=== PATIENT | female | born 1950 | race Caucasian/White ===

== ENCOUNTER → 2016-08-14 | Outpatient (CLI) | payer MEDICARE ==
--- NOTE | 2016-08-15 09:17 | MM ---
Reason for exam: screening (asymptomatic). Last mammogram was performed 1 year ago. History: Patient is postmenopausal. Benign left mammotome panel of the left breast, July 12, 2013. Benign left mammotome panel of the left breast, April 13, 2007. Excisional biopsy of the left breast, April 06, 2001. Taking estrogen for 25 years 9 months beginning at age 35. Physical Findings: A clinical breast exam by your physician is recommended on an annual basis and results should be correlated with mammographic findings. MG 3D Screening Mammo W/Cad Bilateral CC and MLO view(s) were taken. Prior study comparison: July 31, 2015, bilateral MG screening mammo w CAD. July 13, 2014, bilateral MG screening mammo w CAD. January 10, 2014, left breast MG diagnostic mammo LT w CAD. There are scattered fibroglandular densities. Finding: There are typically benign vascular, dystrophic, round, linear diffuse/scattered calcifications in both breasts. Previous mammotome biopsy in the left breast x 2. There is a chronic nodularity bilaterally anteriorly. There is no discrete abnormality. ASSESSMENT: Benign, BI-RAD 2 RECOMMENDATION: Routine screening mammogram of both breasts in 1 year.
== END | disposition home or self-care (01) ==
LOC: RADMAMWWP 11:11
PROVIDERS: ATTEND Family Medicine
DX: Z12.31 Encounter for screening mammogram for malignant neoplasm of breast (principal)
CPT/HCPCS: 77063; G0202

== ENCOUNTER → 2016-08-28 | Outpatient (CLI) | payer MEDICARE ==
--- NOTE | 2016-08-28 11:13 | XR ---
EXAMINATION TYPE: XR chest 2V DATE OF EXAM: 08/28/2016 10:40 AM COMPARISON: 02/14/2012 TECHNIQUE: PA and lateral views submitted. HISTORY: Cough FINDINGS: The lungs are clear and there is no pneumothorax, pleural effusion, or focal pneumonia. Postsurgica l change left shoulder. Elevated right hemidiaphragm. Mild hypertrophic change of the spine. IMPRESSION: 1. No acute process.
--- NOTE | 2016-08-28 11:14 | XR ---
EXAMINATION TYPE: XR sinus DATE OF EXAM: 08/28/2016 11:03 AM COMPARISON: NONE HISTORY: Sinus infection TECHNIQUE: 4 views submitted FINDINGS: There is moderate mucosal thickening involving both maxillary sinuses. Osseous structures i ntact. No air-fluid levels. IMPRESSION: 1. Findings suggestive of moderate maxillary chronic sinusitis.
== END | disposition home or self-care (01) ==
LOC: RADXRMAIN 10:24
PROVIDERS: ATTEND Family Medicine
DX: J20.9 Acute bronchitis, unspecified (principal); J01.90 Acute sinusitis, unspecified
CPT/HCPCS: 70220; 71020

== ENCOUNTER → 2017-04-23 | Outpatient (CLI) | payer MEDICARE ==
[2017-04-23 07:25] LABS: Blood Urea Nitrogen 22 mg/dL (7-17); Non-African American GFR(MDRD) >60 (>60 ml/min/1.73 sqM)
--- NOTE | 2017-04-23 08:13 | CT ---
EXAMINATION TYPE: CT chest w con DATE OF EXAM: 04/23/2017 COMPARISON: NONE HISTORY: Pulmonary nodule and left side chest pain x4-5 weeks. No prior. 100ml of [id number]. Scanned by LS and CS. CT DLP: 630.7 mGycm Automated exposure control for dose reduction was used. CONTRAST: CT scan of the chest is performed with IV Contrast, patient injected with 100ml mL of Omnipaque 300. FINDINGS: LUNGS: There is no concerning parenchymal mass or nodule identified. Parenchymal scarring or atelecta sis is identified within the region of the right middle lobe, right lower lobe and left lower lobe. S mall area of focal pleural thickening with internal calcifications right lower lobe. Chronic elevatio n right hemidiaphragm. There is no pleural effusion or pneumothorax seen. The tracheobronchial tree is patent. MEDIASTINUM: There are no greater than 1 cm hilar or mediastinal lymph nodes. No pericardial effusi on is seen. Thoracic aorta is of normal caliber. The heart is not enlarged. UPPER ABDOMEN: Hepatic steatosis. Cholecystectomy clips. OTHER: No additional significant abnormalit y is seen. IMPRESSION: 1. No concerning of pulmonary nodule or mass. Scattered areas of parenchymal scarring and/or atelect asis.
== END | disposition home or self-care (01) ==
LOC: RADCTMAIN 06:45
PROVIDERS: ATTEND Family Medicine
DX: R91.1 Solitary pulmonary nodule (principal)
CPT/HCPCS: 82565; 84520; 71260; 36415; Q9967

== ENCOUNTER → 2017-09-17 | Outpatient (CLI) | payer MEDICARE ==
--- NOTE | 2017-09-19 10:25 | MM ---
Reason for exam: screening (asymptomatic). Last mammogram was performed 1 year and 1 month ago. History: Patient is postmenopausal. Benign left mammotome panel of the left breast, July 12, 2013. Benign left mammotome panel of the left breast, April 13, 2007. Excisional biopsy of the left breast, April 06, 2001. Taking estrogen for 25 years 9 months beginning at age 35. Physical Findings: A clinical breast exam by your physician is recommended on an annual basis and results should be correlated with mammographic findings. MG 3D Screening Mammo W/Cad Bilateral CC and MLO view(s) were taken. Prior study comparison: August 14, 2016, bilateral MG 3d screening mammo w/cad. July 31, 2015, bilateral MG screening mammo w CAD. There are scattered fibroglandular densities. There is a stable 3mm upper outer quadrant anterior depth right breast mass with calcifications back to 2013. Benign calcifications bilaterally. No suspicious abnormality. ASSESSMENT: Benign, BI-RAD 2 RECOMMENDATION: Routine screening mammogram of both breasts in 1 year.
== END | disposition home or self-care (01) ==
LOC: RADMAMWWP 15:00
PROVIDERS: ATTEND Family Medicine
DX: Z12.31 Encounter for screening mammogram for malignant neoplasm of breast (principal)
CPT/HCPCS: 77063; 77067

== ENCOUNTER → 2018-01-13 | Outpatient (CLI) | payer MEDICARE | END | disposition home or self-care (01) | LOC: RADMRIMAIN 11:27 | PROVIDERS: ATTEND Anesthesiology Pain Medicine | DX: Z53.9 Procedure and treatment not carried out, unspecified reason (principal) ==

== ENCOUNTER → 2018-01-31 | Outpatient (CLI) | payer MEDICARE | END | disposition home or self-care (01) | LOC: RADMRIMAIN 12:21 | PROVIDERS: ATTEND Family Medicine | DX: E11.9 Type 2 diabetes mellitus without complications (principal) | CPT/HCPCS: 82565 ==

== ENCOUNTER 2018-05-16 15:42 | Inpatient (IN) | payer MEDICARE ==
[2018-05-16] MEDS ORDERED: SODIUM CHLORIDE 0.9% 1,000 ML IV STA (15:52)
--- NOTE | 2018-05-16 15:57 | ED ---
General Adult HPI - General Chief complaint: Syncope Stated complaint: Syncope Time Seen by Provider: 05/16/18 15:42 Source: patient, EMS, RN notes reviewed Mode of arrival: EMS Limitations: no limitations - History of Present Illness Initial comments: This is a 68-year-old female who presents emergency department after a near syncopal episode. Patient states over the last few days she hasn't been eating or drinking because she just hasn't been hungry. Patient states she's also had multiple falls over that period of time. Patient states 2 days ago she hit her head and hurt her neck but she didn't get evaluated that time. Patient also states she bruised her right knee couple days ago but it has full range of motion in has no problem holding up her weight. Patient states today she was getting up off the toilet when she got lightheaded and fell forward and fell down. Patient denies hitting her head or neck today. Patient denies hurting any part of her body on the fall. Patient states she was extremely lightheaded anytime he try to sit her back up to her called EMS. Patient denies any chest pain palpitations difficulty breathing shortness of breath per patient denies any abdominal pain patient denies nausea vomiting diarrhea. Patient states she continues to take her blood pressure medications even though she's been lightheaded and falling recently. Patient states she is not immobile pressure cuff at home she does not take her blood pressure at home. - Related Data Home Medications Medication Instructions Recorded Confirmed Aspirin EC [Ecotrin Low Dose] 81 mg PO DAILY 05/16/18 05/16/18 Estrogens, Conjugated [Premarin] 1.25 mg PO HS 05/16/18 05/16/18 Gabapentin [Neurontin] 300 mg PO HS 05/16/18 05/16/18 Glucosamine/Chondr Arrieta A Sod [Osteo 2 tab PO HS 05/16/18 05/16/18 Bi-Flex Caplet] Ibuprofen [Motrin] 800 mg PO BID 05/16/18 05/16/18 Levothyroxine Sodium [Synthroid] 200 mcg PO DAILY 05/16/18 05/16/18 Loratadine [Claritin] 10 mg PO DAILY 05/16/18 05/16/18 Montelukast [Singulair] 10 mg PO DAILY 05/16/18 05/16/18 Omeprazole 40 mg PO BID 05/16/18 05/16/18 Sucralfate [Carafate] 1 gm PO AC-TID 05/16/18 05/16/18 Sulfamethox-Tmp 800-160Mg [Bactrim 1 tab PO BID 05/16/18 05/16/18 DS 800-160 mg] Valsartan/Hydrochlorothiazide 1 tab PO DAILY 05/16/18 05/16/18 [Valsartan-Hctz 320-25 mg Tab] oxyCODONE HCL [OxyCONTIN] 30 mg PO Q12H 05/16/18 05/16/18 oxyCODONE-APAP 10-325MG [Percocet 1 tab PO BID 05/16/18 05/16/18 10-325 mg] sitaGLIPtin [Januvia] 100 mg PO DAILY 05/16/18 05/16/18 Allergies Allergy/AdvReac Type Severity Reaction Status Date / Time Penicillins Allergy Rash/Hives Verified 05/16/18 16:42 Review of Systems ROS Statement: Those systems with pertinent positive or pertinent negative responses have been documented in the HPI. ROS Other: All systems not noted in ROS Statement are negative. Past Medical History Past Medical History: Hypertension, Thyroid Disorder History of Any Multi-Drug Resistant Organisms: None Reported Past Surgical History: Back Surgery, Section, Cholecystectomy, Hysterectomy Additional Past Surgical History / Comment(s): right elbow, right ankle, right rotator cuff, Past Psychological History: No Psychological Hx Reported Smoking Status: Never smoker Past Alcohol Use History: None Reported Past Drug Use History: None Reported General Exam - General Exam Comments Initial Comments: GENERAL: Patient is well-developed and well-nourished. Patient is nontoxic and well- hydrated and is in mild distress. ENT: Neck is soft and supple. No significant lymphadenopathy is noted. Oropharynx is clear. Moist mucous membranes. Neck has full range of motion without eliciting any pain. EYES: The sclera were anicteric and conjunctiva were pink and moist. Extraocular movements were intact and pupils were equal round and reactive to light. Eyelids were unremarkable. PULMONARY: Unlabored respirations. Good breath sounds bilaterally. No audible rales rhonchi or wheezing was noted. CARDIOVASCULAR: There is a regular rate and rhythm without any murmurs gallops or rubs. ABDOMEN: Soft and nontender with normal bowel sounds. No palpable organomegaly was noted. There is no palpable pulsatile mass. SKIN: Skin is clear with no lesions or rashes and otherwise unremarkable. Patient has bilateral radial pulses but are faint. NEUROLOGIC: Patient is alert and oriented x3. Cranial nerves II through XII are grossly intact. Motor and sensory are also intact. Normal speech, volume and content. Symmetrical smile. MUSCULOSKELETAL: Normal extremities with adequate strength and full range of motion. LYMPHATICS: No significant lymphadenopathy is noted PSYCHIATRIC: Normal psychiatric evaluation. Limitations: no limitations Course Vital Signs 05/16/18 05/16/18 05/16/18 15:44 16:02 16:10 Temperature 97.4 F L Pulse Rate 69 67 66 Respiratory 18 20 20 Rate Blood Pressure 87/43 79/44 83/26 O2 Sat by Pulse 98 92 L Oximetry 05/16/18 05/16/18 16:12 16:35 Temperature Pulse Rate 68 63 Respiratory 18 18 Rate Blood Pressure 71/27 98/31 O2 Sat by Pulse 100 98 Oximetry Medical Decision Making - Medical Decision Making EKG shows sinus rhythm at 67 bpm ID interval is 234 QRS is 102 QT interval is 462 QTC is 480. Patient's EKG shows no ST segment elevation or depression or T wave abnormalities are noted. I spoke with Dr. Burnette she agreed to admit the patient admitted the patient I consult to nephrology repeat CBC. - Lab Data Result diagrams: 05/16/18 16:00 05/16/18 16:00 Lab Results 05/16/18 05/16/18 05/16/18 Range/Units 16:00 16:00 16:00 WBC 10.6 (3.8-10.6) k/uL RBC 3.80 (3.80-5.40) m/uL Hgb 10.4 L (11.4-16.0) gm/dL Hct 34.5 (34.0-46.0) % MCV 90.7 (80.0-100.0) fL MCH 27.5 (25.0-35.0) pg MCHC 30.3 L (31.0-37.0) g/dL RDW 15.0 (11.5-15.5) % Plt Count 285 (150-450) k/uL Neutrophils % 84 % Lymphocytes % 8 % Monocytes % 4 % Eosinophils % 1 % Basophils % 0 % Neutrophils # 9.0 H (1.3-7.7) k/uL Lymphocytes # 0.9 L (1.0-4.8) k/uL Monocytes # 0.4 (0-1.0) k/uL Eosinophils # 0.1 (0-0.7) k/uL Basophils # 0.0 (0-0.2) k/uL Hypochromasia Slight PT (9.0-12.0) sec INR (<1.2) APTT (22.0-30.0) sec Sodium 132 L (137-145) mmol/L Potassium 3.0 L (3.5-5.1) mmol/L Chloride 99 (98-107) mmol/L Carbon Dioxide 16 L (22-30) mmol/L Anion Gap 17 mmol/L BUN 84 H (7-17) mg/dL Creatinine 5.47 H (0.52-1.04) mg/dL Est GFR (CKD-EPI)AfAm 9 (>60 ml/min/1.73 sqM) Est GFR (CKD-EPI)NonAf 7 (>60 ml/min/1.73 sqM) Glucose 122 H (74-99) mg/dL Calcium 7.9 L (8.4-10.2) mg/dL Magnesium 3.1 H (1.6-2.3) mg/dL Total Bilirubin 0.2 (0.2-1.3) mg/dL AST 42 H (14-36) U/L ALT 27 (9-52) U/L Alkaline Phosphatase 121 (38-126) U/L Total Creatine Kinase 700 H (30-135) U/L CK-MB (CK-2) 12.3 H (0.0-2.4) ng/mL CK-MB (CK-2) Rel Index 1.8 Troponin I <0.012 (0.000-0.034) ng/mL Total Protein 6.1 L (6.3-8.2) g/dL Albumin 2.8 L (3.5-5.0) g/dL Urine Color Urine Appearance (Clear) Urine pH (5.0-8.0) Ur Specific [place] (1.001-1.035) Urine Protein (Negative) Urine Glucose (UA) (Negative) Urine Ketones (Negative) Urine Blood (Negative) Urine Nitrite (Negative) Urine Bilirubin (Negative) Urine Urobilinogen (<2.0) mg/dL Ur Leukocyte Esterase (Negative) Urine RBC (0-5) /hpf Urine WBC (0-5) /hpf Hyaline Casts (0-2) /lpf Urine Mucus (None) /hpf 05/16/18 05/16/18 Range/Units 16:00 16:08 WBC (3.8-10.6) k/uL RBC (3.80-5.40) m/uL Hgb (11.4-16.0) gm/dL Hct (34.0-46.0) % MCV (80.0-100.0) fL MCH (25.0-35.0) pg MCHC (31.0-37.0) g/dL RDW (11.5-15.5) % Plt Count (150-450) k/uL Neutrophils % % Lymphocytes % % Monocytes % % Eosinophils % % Basophils % % Neutrophils # (1.3-7.7) k/uL Lymphocytes # (1.0-4.8) k/uL Monocytes # (0-1.0) k/uL Eosinophils # (0-0.7) k/uL Basophils # (0-0.2) k/uL Hypochromasia PT 10.5 (9.0-12.0) sec INR 1.0 (<1.2) APTT 35.8 H (22.0-30.0) sec Sodium (137-145) mmol/L Potassium (3.5-5.1) mmol/L Chloride (98-107) mmol/L Carbon Dioxide (22-30) mmol/L Anion Gap mmol/L BUN (7-17) mg/dL Creatinine (0.52-1.04) mg/dL Est GFR (CKD-EPI)AfAm (>60 ml/min/1.73 sqM) Est GFR (CKD-EPI)NonAf (>60 ml/min/1.73 sqM) Glucose (74-99) mg/dL Calcium (8.4-10.2) mg/dL Magnesium (1.6-2.3) mg/dL Total Bilirubin (0.2-1.3) mg/dL AST (14-36) U/L ALT (9-52) U/L Alkaline Phosphatase (38-126) U/L Total Creatine Kinase (30-135) U/L CK-MB (CK-2) (0.0-2.4) ng/mL CK-MB (CK-2) Rel Index Troponin I (0.000-0.034) ng/mL Total Protein (6.3-8.2) g/dL Albumin (3.5-5.0) g/dL Urine Color Yellow Urine Appearance Clear (Clear) Urine pH 6.0 (5.0-8.0) Ur Specific [place] 1.014 (1.001-1.035) Urine Protein 1+ H (Negative) Urine Glucose (UA) Negative (Negative) Urine Ketones Negative (Negative) Urine Blood Negative (Negative) Urine Nitrite Negative (Negative) Urine Bilirubin Negative (Negative) Urine Urobilinogen <2.0 (<2.0) mg/dL Ur Leukocyte Esterase Negative (Negative) Urine RBC 1 (0-5) /hpf Urine WBC 2 (0-5) /hpf Hyaline Casts 8 H (0-2) /lpf Urine Mucus Rare H (None) /hpf Disposition Clinical Impression: Acute renal failure, Anemia, Hypokalemia Disposition: ADMITTED IP TO THIS HOSP Referrals: Kp Shaw DO [Primary Care Provider] - 1-2 days Time of Disposition: 17:36
[2018-05-16 16:12] LABS: Basophils % (A) 0 %; Eosinophils # (A) 0.1 k/uL (0-0.7); Eosinophils % (A) 1 %; HCT 34.5 % (34.0-46.0); HGB 10.4 gm/dL (11.4-16.0); Hypochromasia Slight; Lymphocytes # (A) 0.9 k/uL (1.0-4.8); Lymphocytes % (A) 8 %; MCH 27.5 pg (25.0-35.0); MCHC 30.3 g/dL (31.0-37.0); MCV 90.7 fL (80.0-100.0); Mean Platelet Volume 7.2; Monocytes # (A) 0.4 k/uL (0-1.0); Monocytes % (A) 4 %; Neutrophils % (A) 84 %; Platelet Count 285 k/uL (150-450); WBC 10.6 k/uL (3.8-10.6)
[2018-05-16 16:21] LABS: Albumin 2.8 g/dL (3.5-5.0); Calcium 7.9 mg/dL (8.4-10.2); Magnesium 3.1 mg/dL (1.6-2.3); Total Bilirubin 0.2 mg/dL (0.2-1.3); Total Protein 6.1 g/dL (6.3-8.2)
[2018-05-16 16:22] LABS: Creatine Kinase 700 U/L (30-135)
[2018-05-16 16:26] LABS: Appearance,Urine Clear (Clear); Bilirubin,Urine Negative (Negative); Blood,Urine Negative (Negative); Color,Urine Yellow; Glucose,Urine (UA) Negative (Negative); Hyaline Casts,Urine 8 /lpf (0-2); Ketones,Urine Negative (Negative); Leukocyte Esterase,Urine Negative (Negative); Mucus,Urine Rare /hpf; Nitrite,Urine Negative (Negative); Protein,Urine 1+ (Negative); RBC,Urine 1 /hpf (0-5); Specific Gravity,Urine 1.014 (1.001-1.035); Urobilinogen,Urine <2.0 mg/dL (<2.0); WBC,Urine 2 /hpf (0-5)
[2018-05-16 16:35] LABS: Creatine Kinase MB 12.3 ng/mL (0.0-2.4); Troponin I <0.012 ng/mL (0.000-0.034)
[2018-05-16 16:36] LABS: Partial Thromboplastin Time 35.8 sec (22.0-30.0); Prothrombin Time 10.5 sec (9.0-12.0)
[2018-05-16] MEDS ORDERED: SODIUM CHLORIDE 0.9% 500 ML 500 ML IV ONE (16:37)
--- NOTE | 2018-05-16 16:48 | XR ---
EXAMINATION TYPE: XR chest 2V DATE OF EXAM: 05/16/2018 COMPARISON: 08/28/2016 HISTORY: Chest pain TECHNIQUE: Frontal and lateral views of the chest are obtained. FINDINGS: There is elevated right diaphragm. There is no heart failure. Lungs appear clear of consol idation. There is left shoulder prosthesis. IMPRESSION: Chronic elevated right diaphragm could relate to paralysis. No acute lung disease. No ch jessica.
--- NOTE | 2018-05-16 16:56 | CT ---
EXAMINATION TYPE: CT brain anna fry DATE OF EXAM: 05/16/2018 COMPARISON: None HISTORY: Syncope, mulitple falls neck pain. Headache. CT DLP: 1619.6 mGycm Automated exposure control for dose reduction was used. TECHNIQUE: CT scan of the head and cervical spine are performed without contrast. FINDINGS: Ventricles of normal size. There is no mass effect nor midline shift. There is no sign of intracranial hemorrhage. The calvarium is intact. Cervical vertebra have normal alignment. Disc spaces are fairly normal. There is minor anterior spurr ing at C5-6. Skull base is intact. The facet joints are intact. There is no evidence of a fracture. IMPRESSION: Negative CT scan of the brain. Negative CT scan of the cervical spine. No fracture.
[2018-05-16] MEDS ORDERED: SODIUM CHLORIDE 0.9% 1,000 ML IV ONE ×2 (17:36→20:08)
[2018-05-16] MEDS ORDERED: MORPHINE SULFATE 2 MG/ML SYRINGE IVP PRN (20:10)
[2018-05-16] MEDS: OSTEO BIO FLEX PO SCH (20:46)
[2018-05-16] MEDS: oxyCODONE ER 15 MG TAB.ER.12H PO SCH (20:48)
[2018-05-16] MEDS: SODIUM CHLORIDE 0.9% 1,000 ML IV SCH (22:15)
[2018-05-17 04:58] LABS: Glucose,Whole Blood 103 mg/dL (75-99)
[2018-05-17] MEDS ORDERED: SODIUM CHLORIDE 0.9% 1,000 ML IV ONE ×3 (05:20→14:48)
[2018-05-17 06:16] LABS: Glucose,Whole Blood 109 mg/dL (75-99)
[2018-05-17] MEDS: SODIUM CHLORIDE 0.9% 1,000 ML IV SCH ×3 (06:29→13:19)
[2018-05-17 07:01] LABS: Basophils % (A) 0 %; Eosinophils # (A) 0.2 k/uL (0-0.7); Eosinophils % (A) 2 %; HCT 33.5 % (34.0-46.0); HGB 10.4 gm/dL (11.4-16.0); Hypochromasia Slight; Lymphocytes # (A) 0.8 k/uL (1.0-4.8); Lymphocytes % (A) 8 %; MCHC 31.1 g/dL (31.0-37.0); Mean Platelet Volume 7.7; Monocytes # (A) 0.4 k/uL (0-1.0); Monocytes % (A) 4 %; Neutrophils # (A) 8.4 k/uL (1.3-7.7); Neutrophils % (A) 84 %; Platelet Count 233 k/uL (150-450); RBC 3.73 m/uL (3.80-5.40); RDW 15.2 % (11.5-15.5)
[2018-05-17 07:39] LABS: Albumin 2.4 g/dL (3.5-5.0); Calcium 6.6 mg/dL (8.4-10.2); Total Bilirubin 0.4 mg/dL (0.2-1.3); Total Protein 5.5 g/dL (6.3-8.2)
[2018-05-17 07:40] LABS: Potassium 3.7 mmol/L (3.5-5.1)
[2018-05-17] MEDS: LINAGLIPTIN 5 MG TABLET PO SCH (08:04)
[2018-05-17] MEDS: LORATADINE 10 MG TAB PO SCH (08:04)
[2018-05-17] MEDS: SUCRALFATE 1 GM TAB PO SCH ×3 (08:04→16:46)
[2018-05-17] MEDS: ASPIRIN 81 MG PO SCH (08:04)
[2018-05-17] MEDS: MONTELUKAST 10 MG TAB PO SCH (08:04)
[2018-05-17] MEDS: LEVOTHYROXINE 100 MCG TAB PO SCH (08:04)
[2018-05-17] MEDS: oxyCODONE ER 15 MG TAB.ER.12H PO SCH (09:33)
--- NOTE | 2018-05-17 11:18 | US ---
EXAMINATION TYPE: US kidneys/renal and bladder DATE OF EXAM: 05/17/2018 COMPARISON: CT from 2011 CLINICAL HISTORY: ARF. Difficult exam due to patient's body habitus EXAM MEASUREMENTS: Right Kidney: 11.9 x 5.3 x 4.9 cm Left Kidney: 11.6 x 5.7 x 5.2 cm Right Kidney: No hydronephrosis. Hypoechoic, probable Cystic area visualized measuring 2.1 x 1.6 x 1. 9 cm lower pole Left Kidney: No hydronephrosis. Hypoechoic, probable cystic area visualized upper pole measuring 1.9 x 2.0 x 1.5 cm Bladder: wnl as visualized Bilateral Jets seen: Yes There is no evidence for hydronephrosis at this point in time. No nephrolithiasis is seen. The uri nary bladder is anechoic. Bilateral ureteral jets are seen. Suboptimal study due to patient's large body habitus. Some cortical thinning is present bilaterally. A few simple appearing cysts are redemonstrated bilaterally. IMPRESSION: Findings consistent with product of chronic medical renal disease redemonstrated. No hydronephrosis i s noted bilaterally.
--- NOTE | 2018-05-17 12:27 | P.HPIM ---
History of Present Illness H&P Date: 05/17/18 Chief Complaint: Dizziness This is a 68-year-old female patient with past medical history of hypertension, chronic pain, GERD, hypothyroidism, allergic rhinitis, and diabetes mellitus type 2. Patient reports over the last few days she hasn't been eating or drinking due to lack of appetite. She had multiple falls during the last few days, she reports she injured her right knee a few days ago but did not go in for evaluation. She then fell again while getting up off the toilet, she states she went to get up, was very lightheaded and fell forward. At that time her called EMS to bring her to the emergency department. Upon arrival patient was hypotensive at 83/26 heart rate was 66. Creatinine 5.47, BUN 84, troponin was negative. Chest x-ray shows chronic elevated right diaphragm, but no acute changes. CT of the head and cervical spine were negative for any fractures and no intracranial hemorrhage. Today the patient was evaluated, she reports she is still very dizzy upon standing. Home medications reviewed, she is on Motrin 800 mg 3 times a day, patient reports she has been taking this at home. Possible ATN from ibuprofen use, will obtain ibuprofen and acetaminophen levels. Creatinine slightly improved to 5.1 today after some IV fluids, will continue with IV fluids normal saline at 150. Nephrology on consult for acute renal failure. Will obtain echocardiogram, patient slightly anemic hemoglobin 10.4. Will obtain iron studies as well. Ultrasound of the kidneys reveal chronic medical renal disease, no hydronephrosis. Review of Systems Constitutional: Reports chronic pain, Reports weakness, Denies chills, Denies fever Ears, nose, mouth and throat: Denies headache, Denies nasal congestion, Denies nasal discharge, Denies sinus pain, Denies sinus pressure, Denies sore throat Cardiovascular: Reports lightheadedness, Denies chest pain, Denies dyspnea on exertion, Denies edema, Denies palpitations, Denies shortness of breath, Denies syncope Respiratory: Denies congestion, Denies cough, Denies dyspnea, Denies wheezing Gastrointestinal: Reports loss of appetite, Denies abdominal pain, Denies constipation, Denies diarrhea, Denies nausea, Denies vomiting Genitourinary: Denies difficulty voiding, Denies dysuria, Denies hematuria, Denies nocturia, Denies urge incontinence, Denies urgency, Denies urinary frequency Musculoskeletal: Reports frequent falls, Reports gait dysfunction, Reports muscle weakness, Denies arm numbness/tingling, Denies neck pain Integumentary: Denies dryness, Denies lesions, Denies rash Neurological: Reports balance difficulties, Reports gait dysfunction, Denies change in mentation, Denies confusion, Denies headaches, Denies paralysis, Denies seizures Psychiatric: Denies confusion, Denies difficulty concentrating, Denies disorientation, Denies hallucinations, Denies irritability Endocrine: Denies nocturia, Denies palpitations, Denies thyroid mass, Denies weight change Hematologic/Lymphatic: Denies lymphadenopathy Past Medical History Past Medical History: Asthma, Diabetes Mellitus, GERD/Reflux, Hypertension, Pneumonia, Thyroid Disorder History of Any Multi-Drug Resistant Organisms: None Reported Past Surgical History: Back Surgery, Section, Cholecystectomy, Hysterectomy Additional Past Surgical History / Comment(s): right elbow, right ankle, right rotator cuff, Past Anesthesia/Blood Transfusion Reactions: Postoperative Nausea & Vomiting ( PONV) Past Psychological History: No Psychological Hx Reported Smoking Status: Never smoker Past Alcohol Use History: None Reported Past Drug Use History: None Reported - Past Family History Mother Additional Family Medical History / Comment(s): at age 94 from "old age " Father Additional Family Medical History / Comment(s): Diseased at age 94 from "old age " Medications and Allergies Home Medications Medication Instructions Recorded Confirmed Type Aspirin EC [Ecotrin Low Dose] 81 mg PO DAILY 05/16/18 05/16/18 History Estrogens, Conjugated [Premarin] 1.25 mg PO HS 05/16/18 05/16/18 History Gabapentin [Neurontin] 300 mg PO HS 05/16/18 05/16/18 History Glucosamine/Chondr Arrieta A Sod [Osteo 2 tab PO HS 05/16/18 05/16/18 History Bi-Flex Caplet] Ibuprofen [Motrin] 800 mg PO TID 05/16/18 05/16/18 History Levothyroxine Sodium [Synthroid] 200 mcg PO DAILY 05/16/18 05/16/18 History Loratadine [Claritin] 10 mg PO DAILY 05/16/18 05/16/18 History Montelukast [Singulair] 10 mg PO DAILY 05/16/18 05/16/18 History Omeprazole 40 mg PO BID 05/16/18 05/16/18 History Sucralfate [Carafate] 1 gm PO AC-TID 05/16/18 05/16/18 History Sulfamethox-Tmp 800-160Mg [Bactrim 1 tab PO BID 05/16/18 05/16/18 History DS 800-160 mg] Valsartan/Hydrochlorothiazide 1 tab PO DAILY 05/16/18 05/16/18 History [Valsartan-Hctz 320-25 mg Tab] oxyCODONE HCL [OxyCONTIN] 30 mg PO Q12H 05/16/18 05/16/18 History oxyCODONE-APAP 10-325MG [Percocet 1 tab PO BID 05/16/18 05/16/18 History 10-325 mg] sitaGLIPtin [Januvia] 100 mg PO DAILY 05/16/18 05/16/18 History Allergies Allergy/AdvReac Type Severity Reaction Status Date / Time Penicillins Allergy Rash/Hives Verified 05/16/18 16:42 Physical Exam Vitals: Vital Signs Temp Pulse Pulse Resp BP BP BP 05/17/18 08:00 97.4 F L 62 11 L 108/65 05/17/18 06:05 66 20 116/84 05/17/18 05:03 97.3 F L 63 16 71/49 05/17/18 04:49 49 L 78/42 05/16/18 22:21 102/54 05/16/18 19:50 05/16/18 19:49 96.2 F L 118/60 05/16/18 19:46 05/16/18 19:45 71 05/16/18 19:39 69 18 05/16/18 19:31 76 18 05/16/18 19:26 66 20 05/16/18 19:25 05/16/18 17:30 58 L 10 L 118/108 05/16/18 17:20 57 L 12 118/108 05/16/18 17:10 58 L 20 111/89 05/16/18 17:00 60 18 05/16/18 16:50 59 L 20 05/16/18 16:40 60 15 98/31 05/16/18 16:35 63 18 98/31 05/16/18 16:30 75/33 05/16/18 16:20 75/33 05/16/18 16:12 68 18 71/27 05/16/18 16:10 66 20 83/26 05/16/18 16:02 67 20 79/44 05/16/18 15:44 97.4 F L 69 18 87/43 BP Pulse Ox 05/17/18 08:00 96 05/17/18 06:05 96 05/17/18 05:03 99 05/17/18 04:49 90/52 05/16/18 22:21 96/48 05/16/18 19:50 110/50 05/16/18 19:49 05/16/18 19:46 98 05/16/18 19:45 80/42 98 05/16/18 19:39 75/37 94 L 05/16/18 19:31 83/44 94 L 05/16/18 19:26 82/41 97 05/16/18 19:25 77/38 05/16/18 17:30 05/16/18 17:20 05/16/18 17:10 05/16/18 17:00 05/16/18 16:50 05/16/18 16:40 94 L 05/16/18 16:35 98 05/16/18 16:30 05/16/18 16:20 05/16/18 16:12 100 05/16/18 16:10 05/16/18 16:02 92 L 05/16/18 15:44 98 Intake and Output 05/16/18 05/17/18 05/17/18 22:59 06:59 14:59 Intake Total 1300 590 Output Total 600 Balance 700 590 Intake: Intake, IV Titration 1300 Amount Sodium Chloride 0.9% 1, 300 000 ml @ 150 mls/hr IV . Q6H40M [facility] Rx#:[id number] Sodium Chloride 0.9% 1, 1000 000 ml @ 999 mls/hr IV . Q1H1M [facility] Rx#:[id number] Oral 590 Output: Urine 600 Straight 600 Other: Weight 121 kg - Constitutional General appearance: cooperative, no acute distress, obese - EENT Eyes: PERRLA, normal appearance ENT: normal oropharynx, no pharyngeal erythema Ears: bilateral: normal - Neck Neck: no lymphadenopathy, normal ROM, no stridor, no thyromegaly Thyroid: bilateral: normal size, negative: enlarged, nodule - Respiratory Respiratory: bilateral: CTA, negative: diminished, rales, rhonchi, wheezing - Cardiovascular Rhythm: regular Heart sounds: normal: S1, S2 - Gastrointestinal General gastrointestinal: no hepatomegaly, normal bowel sounds, no organomegaly , soft, no tenderness - Integumentary Integumentary: no cellulitis, normal, no rash - Neurologic Bilateral bruising to the knees right worse than the left, bruising to the right shoulder - Musculoskeletal Musculoskeletal: generalized weakness, strength equal bilaterally - Psychiatric Psychiatric: A&O x's 3 Results CBC & Chem 7: 05/17/18 06:46 05/17/18 06:46 Labs: Abnormal Lab Results - Last 24 Hours (Table) 05/16/18 05/16/18 05/16/18 Range/Units 16:00 16:00 16:00 RBC (3.80-5.40) m/uL Hgb 10.4 L (11.4-16.0) gm/dL Hct (34.0-46.0) % MCHC 30.3 L (31.0-37.0) g/dL Neutrophils # 9.0 H (1.3-7.7) k/uL Lymphocytes # 0.9 L (1.0-4.8) k/uL APTT (22.0-30.0) sec Sodium 132 L (137-145) mmol/L Potassium 3.0 L (3.5-5.1) mmol/L Carbon Dioxide 16 L (22-30) mmol/L BUN 84 H (7-17) mg/dL Creatinine 5.47 H (0.52-1.04) mg/dL Glucose 122 H (74-99) mg/dL POC Glucose (mg/dL) (75-99) mg/dL Calcium 7.9 L (8.4-10.2) mg/dL Magnesium 3.1 H (1.6-2.3) mg/dL AST 42 H (14-36) U/L Total Creatine Kinase 700 H (30-135) U/L CK-MB (CK-2) 12.3 H (0.0-2.4) ng/mL Total Protein 6.1 L (6.3-8.2) g/dL Albumin 2.8 L (3.5-5.0) g/dL Urine Protein (Negative) Hyaline Casts (0-2) /lpf Urine Mucus (None) /hpf 05/16/18 05/16/18 05/17/18 Range/Units 16:00 16:08 04:55 RBC (3.80-5.40) m/uL Hgb (11.4-16.0) gm/dL Hct (34.0-46.0) % MCHC (31.0-37.0) g/dL Neutrophils # (1.3-7.7) k/uL Lymphocytes # (1.0-4.8) k/uL APTT 35.8 H (22.0-30.0) sec Sodium (137-145) mmol/L Potassium (3.5-5.1) mmol/L Carbon Dioxide (22-30) mmol/L BUN (7-17) mg/dL Creatinine (0.52-1.04) mg/dL Glucose (74-99) mg/dL POC Glucose (mg/dL) 103 H (75-99) mg/dL Calcium (8.4-10.2) mg/dL Magnesium (1.6-2.3) mg/dL AST (14-36) U/L Total Creatine Kinase (30-135) U/L CK-MB (CK-2) (0.0-2.4) ng/mL Total Protein (6.3-8.2) g/dL Albumin (3.5-5.0) g/dL Urine Protein 1+ H (Negative) Hyaline Casts 8 H (0-2) /lpf Urine Mucus Rare H (None) /hpf 05/17/18 05/17/18 05/17/18 Range/Units 06:05 06:46 06:46 RBC 3.73 L (3.80-5.40) m/uL Hgb 10.4 L (11.4-16.0) gm/dL Hct 33.5 L (34.0-46.0) % MCHC (31.0-37.0) g/dL Neutrophils # 8.4 H (1.3-7.7) k/uL Lymphocytes # 0.8 L (1.0-4.8) k/uL APTT (22.0-30.0) sec Sodium 133 L (137-145) mmol/L Potassium (3.5-5.1) mmol/L Carbon Dioxide 14 L (22-30) mmol/L BUN 81 H (7-17) mg/dL Creatinine 5.12 H (0.52-1.04) mg/dL Glucose 103 H (74-99) mg/dL POC Glucose (mg/dL) 109 H (75-99) mg/dL Calcium 6.6 L (8.4-10.2) mg/dL Magnesium (1.6-2.3) mg/dL AST 50 H (14-36) U/L Total Creatine Kinase (30-135) U/L CK-MB (CK-2) (0.0-2.4) ng/mL Total Protein 5.5 L (6.3-8.2) g/dL Albumin 2.4 L (3.5-5.0) g/dL Urine Protein (Negative) Hyaline Casts (0-2) /lpf Urine Mucus (None) /hpf Thrombosis Risk Factor Assmnt - Choose All That Apply Any of the Below Risk Factors Present?: Yes Each Factor Represents 1 point: Abnormal pulmonary function (COPD), Obesity ( BMI >25) Other Risk Factors: Yes Each Risk Factor Represents 2 Points: Age 61-74 years Other congenital or acquired thrombophilia - If yes, enter type in comment: No Thrombosis Risk Factor Assessment Total Risk Factor Score: 4 Thrombosis Risk Factor Assessment Level: Moderate Risk Assessment and Plan Plan: 1. Acute renal failure secondary to dehydration with ATN from possible ibuprofen use. Ultrasound shows chronic medical renal disease, nephrology on consult will continue with IV hydration, ibuprofen and acetaminophen levels ordered, patient received 3.5 mL of normal saline, will monitor I&O's. 2. Dizziness secondary to dehydration. Will continue with IV hydration with normal saline at 150 per hour, monitor I&O's. 3. Anemia, possible from chronic disease, will check iron profile and monitor hemoglobin daily. 4. Hypertension. Patient currently hypotensive, valsartan/hydrochlorothiazide currently on hold. 5. Chronic pain. Motrin discontinued, will continue with IV morphine 2 mg IV push every 6, and OxyContin 15 mg extended release. 6. Hypothyroidism. continue with levothyroxine 200 MCG daily 7. Diabetes mellitus type 2. Continue Tradjenta 5 mg daily and Accu-Cheks. 8. ALLERGIC rhinitis. Continue singular 10 mg daily. 10. DVT/GI prophylaxis. Heparin subcu The above impression and plan of care have been discussed and directed by signing physician. Samantha Pisano nurse practitioner acting as scribe for signing physician.
[2018-05-17] MEDS ORDERED: SODIUM BICARB 8.4% 50 ML SYR (1 MEQ/ML) IV ONE ×2 (12:55→16:28)
[2018-05-17] MEDS: DEXTROSE 5% IN WATER 1,000 ML with SODIUM BICARB (1 MEQ/ML) 150 ML IV SCH (13:19)
--- NOTE | 2018-05-17 14:04 | ECHOF ---
Referral Reason:decreased bp MEASUREMENTS -------- HEIGHT: 170.2 cm WEIGHT: 120.7 kg BP: RVIDd: 3.7 cm (< 3.3) IVSd: 1.4 cm (0.6 - 1.1) LVIDd: 4.8 cm (3.9 - 5.3) LVPWd: 1.4 cm (0.6 - 1.1) IVSs: 1.6 cm LVIDs: 3.6 cm LVPWs: 1.7 cm Ao Diam: 3.0 cm (2.0 - 3.7) AV Cusp: 1.6 cm (1.5 - 2.6) LA Diam: 3.8 cm (2.7 - 3.8) MV EXCURSION: 14.447 mm (> 18.000) MV EF SLOPE: 58 mm/s (70 - 150) EPSS: 0.2 cm MV E Gerardo: 0.84 m/s MV DecT: 296 ms MV A Gerardo: 0.93 m/s MV E/A Ratio: 0.90 AV maxP.84 mmHg AV meanP.17 mmHg RAP: 5.00 mmHg RVSP: 38.30 mmHg FINDINGS -------- Sinus rhythm. Morbid Obesity The left ventricular size is normal. There is mild concentric left ventricular hypertrophy. Overa ll left ventricular systolic function is low-normal with, an EF between 50 - 55 %. The right ventricle is mild to moderately enlarged. The left atrial size is normal. The right atrial size is normal. .5 ml of Lumason was utilized for enhancement of images. There is mild aortic stenosis present. Peak/mean gradient across the Aortic Valve is 18.84mmHg / 10 .17mmHg. Mild mitral annular calcification present. Mild mitral regurgitation is present. Mild tricuspid regurgitation present. There is mild pulmonary hypertension. The right ventricular systolic pressure, as measured by Doppler, is 38.30mmHg. The pulmonic valve was not well visualized. There is a trivial pericardial effusion present. CONCLUSIONS -------- 1. Morbid Obesity 2. The left ventricular size is normal. 3. There is mild concentric left ventricular hypertrophy. 4. Overall left ventricular systolic function is low-normal with, an EF between 50 - 55 %. 5. The right ventricle is mild to moderately enlarged. 6. The left atrial size is normal. 7. The right atrial size is normal. 8. There is mild aortic stenosis present. 9. Peak/mean gradient across the Aortic Valve is 18.84mmHg / 10.17mmHg. 10. Mild mitral annular calcification present. 11. Mild mitral regurgitation is present. 12. Mild tricuspid regurgitation present. 13. There is mild pulmonary hypertension. 14. The right ventricular systolic pressure, as measured by Doppler, is 38.30mmHg. 15. The pulmonic valve was not well visualized. 16. There is a trivial pericardial effusion present. SOUND EFFECTS TECHNICIAN: Hilda Renee RDCS
[2018-05-17] MEDS ORDERED: NOREPINEPHRINE 4 MG in SODIUM CHLORIDE 0.9% 250 ML IV SCH (15:00)
[2018-05-17] MEDS ORDERED: NALOXONE 0.4 MG/ML 1 ML VIAL IV PRN (15:25)
[2018-05-17] MEDS: NOREPINEPHRINE 4 MG in SODIUM CHLORIDE 0.9% 250 ML IV SCH ×2 (15:33→20:33)
[2018-05-17 16:22] LABS: ABG Base Excess -11.9 mmol/L; ABG HCO3 16 mmol/L (21-25); ABG Oxygen Saturation 97.7 % (94-97); ABG PCO2 44 mmHg (35-45); ABG PO2 103 mmHg (83-108); ABG TCO2 18 mmol/L (19-24)
[2018-05-17 16:26] LABS: ABG PH 7.18 (7.35-7.45)
[2018-05-17 18:08] LABS: ABG Base Excess -8.3 mmol/L; ABG HCO3 19 mmol/L (21-25); ABG Oxygen Saturation 99.3 % (94-97); ABG PCO2 46 mmHg (35-45); ABG PH 7.23 (7.35-7.45); ABG PO2 145 mmHg (83-108); ABG TCO2 21 mmol/L (19-24)
[2018-05-17] MEDS: OSTEO BIO FLEX PO SCH (20:27)
[2018-05-17] MEDS: HEPARIN SODIUM,PORCINE 5,000 UNIT/ML 1 ML VIAL SQ SCH (20:31)
--- NOTE | 2018-05-17 23:28 | CONS ---
CONSULTATION REASON FOR CONSULT: Renal failure. HISTORY OF PRESENT ILLNESS: Patient is a 68-year-old female who was admitted to the hospital with complaints of weakness, not feeling well. She actually fell at home and the family called EMS. When patient came into the hospital, her blood pressure was low with systolic around 83 mmHg. She denies any previous history of kidney disease. Serum creatinine was 5.47 mg/dL at the time of admission. We have a previous creatinine of 1.3 on 04/27/2018. The patient did report that she was taking Motrin 800 mg 3 times a day. The urine output had been low and her urine was dark, according to her . This morning when patient was seen, she remained hypotensive. Her blood pressure by Dopplers was as low as 65 mmHg. The patient is currently being given IV fluid bolus. PAST MEDICAL HISTORY: Significant for hypertension, type 2 diabetes, hypothyroidism, gastroesophageal reflux disease, previous history of pneumonia, asthma, osteoarthritis. PAST SURGICAL HISTORY: , cholecystectomy, hysterectomy, right elbow surgery, right ankle surgery, right rotator cuff surgery. SOCIAL HISTORY: Negative for smoking, drug abuse or alcohol abuse. MEDICATIONS: Medications at home prior to admission include aspirin, Premarin, Neurontin, Motrin, Synthroid, Claritin, Singulair, Carafate, omeprazole, Bactrim, valsartan, hydrochlorothiazide, OxyContin, and Januvia. ALLERGIES: Include PENICILLIN which causes rash and hives. REVIEW OF SYSTEMS: As per HPI. Other systems negative. PHYSICAL EXAMINATION: Patient is comfortable, awake, she falls back to sleep frequently. She is not in any acute distress. When patient was seen this morning, blood pressure was 108/65, however, repeat blood pressure by Dopplers was 64/36, heart rate 61 per minute. She is afebrile. Examination of the heart S1, S2. Examination lungs bilateral breath sounds are heard. Abdomen is soft, nontender. Examination of lower extremities shows no significant edema. RACK LOADER exam is grossly intact. The patient is sleepy but arousable. LAB: Show sodium 133, potassium 3.7, CO2 is 14, BUN 81, serum creatinine 5.12, hemoglobin 10.4 g/dL. Acetaminophen level was less than 10. UA showed 1+ protein, WBCs 2, RBCs 1. There is no blood. Chest x-ray shows elevated diaphragm. No major lung disease was seen. The patient has had an ultrasound of the kidneys which showed no evidence of hydronephrosis or cysts. Right kidney 11.9, left kidney 11.6 cm. ASSESSMENT: 1. Acute kidney injury secondary to hypotension, NSAIDs and in the setting of use of angiotensin receptor blockers. I will give her a bolus of saline. We will maintain the patient on IV bicarb and avoid any other nephrotoxic agents. We will continue to hold off on NSAIDs and YON inhibitor/angiotensin receptor blockers for now. Her UA is fairly benign. 2. Metabolic acidosis secondary to renal failure, non gap. Check lactic acid levels, although one would see an anion gap acidosis with lactic acidosis. However, in view of hypotension, I will order a lactic acid level. 3. Hypertension. Blood pressure is currently low. 4. Anemia, rule out iron deficiency. 5. Type 2 diabetes. 6. Hypotension, possibly related to the underlying sepsis. Check cultures, check cortisol level and start pressors if blood pressure remains low after fluid bolus. Thank you for this consultation. Will continue to follow the patient with you during hospitalization. MMODL / IJN: [id number] /
[2018-05-18] MEDS: DEXTROSE 5% IN WATER 1,000 ML with SODIUM BICARB (1 MEQ/ML) 150 ML IV SCH ×2 (00:07→12:29)
[2018-05-18 05:30] LABS: Basophils % (A) 0 %; Eosinophils # (A) 0.2 k/uL (0-0.7); Eosinophils % (A) 2 %; HGB 9.6 gm/dL (11.4-16.0); Lymphocytes # (A) 0.5 k/uL (1.0-4.8); Lymphocytes % (A) 7 %; MCH 27.3 pg (25.0-35.0); MCV 88.2 fL (80.0-100.0); Mean Platelet Volume 7.3; Monocytes # (A) 0.3 k/uL (0-1.0); Monocytes % (A) 4 %; Neutrophils # (A) 6.7 k/uL (1.3-7.7); Neutrophils % (A) 85 %; Platelet Count 274 k/uL (150-450); RBC 3.51 m/uL (3.80-5.40); RDW 15.4 % (11.5-15.5); WBC 7.9 k/uL (3.8-10.6)
[2018-05-18 05:43] LABS: Albumin 2.5 g/dL (3.5-5.0); Calcium 6.6 mg/dL (8.4-10.2); Magnesium 2.6 mg/dL (1.6-2.3); Phosphorus 4.4 mg/dL (2.5-4.5); Potassium 2.9 mmol/L (3.5-5.1); Total Bilirubin 0.2 mg/dL (0.2-1.3); Total Protein 5.5 g/dL (6.3-8.2)
[2018-05-18 05:43] LABS: ABG Base Excess -1.9 mmol/L; ABG HCO3 24 mmol/L (21-25); ABG Oxygen Saturation 99.9 % (94-97); ABG PCO2 42 mmHg (35-45); ABG PH 7.36 (7.35-7.45); ABG PO2 170 mmHg (83-108); ABG TCO2 25 mmol/L (19-24)
--- NOTE | 2018-05-18 07:49 | XR ---
EXAMINATION TYPE: XR chest 1V DATE OF EXAM: 05/18/2018 COMPARISON: Prior chest x-ray 05/16/2018 HISTORY: Shortness of breath TECHNIQUE: Single frontal view of the chest is obtained. FINDINGS: The heart is enlarged. Postop change again noted to the left shoulder, there are overlying cardiac leads and the patient is rotated. Patchy basilar density persists. No evident pneumothorax. Pulmonary vascularity and carlos not significantly changed. Right hemidiaphragm remains elevated. IMPRESSION: Stable findings. There may be basilar atelectasis or scarring, correlate to exclude pneu monia. Cardiomegaly. Persistent elevation of the right hemidiaphragm.
[2018-05-18] MEDS: LEVOTHYROXINE 100 MCG TAB PO SCH (08:06)
[2018-05-18] MEDS: SUCRALFATE 1 GM TAB PO SCH ×3 (08:06→18:37)
[2018-05-18] MEDS ORDERED: Potassium Replacement Protocol 1 EACH MISC MISCELLANE PRN (08:50)
--- NOTE | 2018-05-18 09:11 | P.PN ---
Subjective Progress Note Date: 05/18/18 Seen and examined for the follow-up of acute kidney injury. Feels better today. Good urine output. Blood pressures stable still on low-dose levo fed. No nausea vomiting or diarrhea. Renal functions improving. Objective - Vital Signs Vital signs: Vital Signs Temp 100.6 F H 05/18/18 00:00 Pulse 90 05/18/18 06:30 Resp 13 05/18/18 06:30 BP 102/47 05/17/18 16:00 Pulse Ox 98 05/18/18 06:30 Intake & Output 05/17/18 05/18/18 05/18/18 18:59 06:59 18:59 Intake Total 1778.0 2019.25 150 Output Total 1050 3010 250 Balance 728.0 -990.75 -100 Weight 133 kg Intake: IV 1700 1650 150 Dextrose 5% in Water 1, 400 1100 100 000 ml @ 100 mls/hr IV . [id number] [facility] with Sodium Bicarb (1 Meq/ml) 150 ml Rx#:[id number] Sodium Chloride 0.9% 1, 200 550 50 000 ml @ 50 mls/hr IV . Q20H [facility] Rx#:[id number] Sodium Chloride 0.9% 1, 1100 000 ml @ 999 mls/hr IV . Q1H1M [facility] Rx#:[id number] Intake, IV Titration 78.0 369.25 Amount Norepinephrine 4 mg In 78.0 369.25 Sodium Chloride 0.9% 250 ml @ Titrate IV .Q0M [facility] Rx#:[id number] Output: Urine 1050 3010 250 Other: Voiding Method Indwelling Catheter Indwelling Catheter ABP, PAP, CO, CI - Last Documented Arterial Blood Pressure 135/58 - Exam No acute distress S1-S2 heard Lungs clear Joyce catheter no edema - Labs CBC & Chem 7: 05/18/18 04:28 05/18/18 04:28 Labs: Abnormal Lab Results - Last 24 Hours (Table) 05/17/18 05/17/18 05/17/18 Range/Units 12:43 16:13 18:00 RBC (3.80-5.40) m/uL Hgb (11.4-16.0) gm/dL Hct (34.0-46.0) % Lymphocytes # (1.0-4.8) k/uL ABG pH 7.18 L* 7.23 L (7.35-7.45) ABG pCO2 46 H (35-45) mmHg ABG pO2 145 H (83-108) mmHg ABG HCO3 16 L 19 L (21-25) mmol/L ABG Total CO2 18 L (19-24) mmol/L ABG O2 Saturation 97.7 H 99.3 H (94-97) % Potassium (3.5-5.1) mmol/L Carbon Dioxide (22-30) mmol/L BUN (7-17) mg/dL Creatinine (0.52-1.04) mg/dL Glucose (74-99) mg/dL Calcium (8.4-10.2) mg/dL Magnesium (1.6-2.3) mg/dL AST (14-36) U/L Alkaline Phosphatase (38-126) U/L Total Protein (6.3-8.2) g/dL Albumin (3.5-5.0) g/dL U Random Total Protein 47 H (<12) mg/dL 05/18/18 05/18/18 Range/Units 04:28 04:28 RBC 3.51 L (3.80-5.40) m/uL Hgb 9.6 L (11.4-16.0) gm/dL Hct 31.0 L (34.0-46.0) % Lymphocytes # 0.5 L (1.0-4.8) k/uL ABG pH (7.35-7.45) ABG pCO2 (35-45) mmHg ABG pO2 (83-108) mmHg ABG HCO3 (21-25) mmol/L ABG Total CO2 (19-24) mmol/L ABG O2 Saturation (94-97) % Potassium 2.9 L (3.5-5.1) mmol/L Carbon Dioxide 20 L (22-30) mmol/L BUN 65 H (7-17) mg/dL Creatinine 2.74 H (0.52-1.04) mg/dL Glucose 200 H (74-99) mg/dL Calcium 6.6 L (8.4-10.2) mg/dL Magnesium 2.6 H (1.6-2.3) mg/dL AST 56 H (14-36) U/L Alkaline Phosphatase 132 H (38-126) U/L Total Protein 5.5 L (6.3-8.2) g/dL Albumin 2.5 L (3.5-5.0) g/dL U Random Total Protein (<12) mg/dL Microbiology - Last 24 Hours (Table) 05/17/18 12:43 Urine Culture - Preliminary Urine,Catheterized Assessment and Plan Assessment: #1 nonoliguric acute kidney injury secondary to hemodynamic ATN with low blood pressures and also component of NSAID use. #2 and then Metabolic acidosis secondary to acute kidney injury. #3 shock #4 hypertension but low on admission #5 diabetes #6 CKD stage III baseline creatinine 1.3 MG per DL. Plan: #1 renal functions improving anticipate to get better in next few days. #2 renal off pressors. #3 continue with bicarb drip for today, plan to discontinue by tomorrow. #4 avoid nephrotoxic agents and hypotensive episode #5 advised to avoid NSAIDs.
[2018-05-18] MEDS: SODIUM CHLORIDE 0.9% 1,000 ML IV SCH (09:27)
[2018-05-18] MEDS: LINAGLIPTIN 5 MG TABLET PO SCH (09:28)
[2018-05-18] MEDS: HEPARIN SODIUM,PORCINE 5,000 UNIT/ML 1 ML VIAL SQ SCH ×2 (09:28→21:21)
[2018-05-18] MEDS: MONTELUKAST 10 MG TAB PO SCH (09:28)
[2018-05-18] MEDS: POTASSIUM CHLORIDE 10 MEQ in WATER FOR INJECTION 1 100ML.BAG IVPB SCH ×4 (09:28→12:31)
[2018-05-18] MEDS: POTASSIUM CHLORIDE ER 20 MEQ TAB.ER PO SCH ×4 (09:28→21:34)
[2018-05-18] MEDS: LORATADINE 10 MG TAB PO SCH (09:28)
[2018-05-18] MEDS: ASPIRIN 81 MG PO SCH (09:28)
--- NOTE | 2018-05-18 11:01 | P.PN ---
Subjective Progress Note Date: 05/18/18 This is a 68-year-old female patient with past medical history of hypertension, chronic pain, GERD, hypothyroidism, allergic rhinitis, and diabetes mellitus type 2. Patient reports over the last few days she hasn't been eating or drinking due to lack of appetite. She had multiple falls during the last few days, she reports she injured her right knee a few days ago but did not go in for evaluation. She then fell again while getting up off the toilet, she states she went to get up, was very lightheaded and fell forward. At that time her called EMS to bring her to the emergency department. Upon arrival patient was hypotensive at 83/26 heart rate was 66. Creatinine 5.47, BUN 84, troponin was negative. Chest x-ray shows chronic elevated right diaphragm, but no acute changes. CT of the head and cervical spine were negative for any fractures and no intracranial hemorrhage. Today the patient was evaluated, she reports she is still very dizzy upon standing. Home medications reviewed, she is on Motrin 800 mg 3 times a day, patient reports she has been taking this at home. Possible ATN from ibuprofen use, will obtain ibuprofen and acetaminophen levels. Creatinine slightly improved to 5.1 today after some IV fluids, will continue with IV fluids normal saline at 150. Nephrology on consult for acute renal failure. Will obtain echocardiogram, patient slightly anemic hemoglobin 10.4. Will obtain iron studies as well. Ultrasound of the kidneys reveal chronic medical renal disease, no hydronephrosis. 05/18 patient examined at bedside complains of significant pain in the neck and the back. The pressure 84/50 but it's difficult to assess as patient constantly moving her arm currently on 3 mics of Levophed managed in the ICU. Urine output 400 mL per hour. Patient had ABG yesterday with a pH of7.18 bicarb 16 status post 2 A of bicarb. With improvemen with improvement of the pH is 7.23. Labs obtained this morning suggested hemoglobin of 9.6, potassium is 2.9 status post repletion, BUN 65, creatinine 2.74 glucose 200, phosphorus 4.4, iron 42 and saturation to 47, total bilirubin 0.2, AST 56, ALT 29, alkaline phosphatase 132, urine creatinine 165 urine for protein 47. Retroperitoneal ultrasound was obtained with no hydronephrosis no sign of any pyelonephritis. Troponin 1 negative EKG with sinus rhythm with first acute block. Echocardiogram EF 50-55% no wall or valve abnormality seen. Continue fluids at 50 mL/h with bicarb drip running at 100 mL per hour. PTOT consult. Reinitiate patient on OxyContin extended release 15 mg twice a day Objective - Vital Signs Vital signs: Vital Signs Temp 100.6 F H 05/18/18 00:00 Pulse 90 05/18/18 06:30 Resp 13 05/18/18 06:30 BP 102/47 05/17/18 16:00 Pulse Ox 98 05/18/18 06:30 Intake & Output 05/17/18 05/18/18 05/18/18 18:59 06:59 18:59 Intake Total 1778.0 2019.25 150 Output Total 1050 3010 250 Balance 728.0 -990.75 -100 Weight 133 kg Intake: IV 1700 1650 150 Dextrose 5% in Water 1, 400 1100 100 000 ml @ 100 mls/hr IV . [id number] TONJA with Sodium Bicarb (1 Meq/ml) 150 ml Rx#:[id number] Sodium Chloride 0.9% 1, 200 550 50 000 ml @ 50 mls/hr IV . Q20H [facility] Rx#:[id number] Sodium Chloride 0.9% 1, 1100 000 ml @ 999 mls/hr IV . Q1H1M ONE Rx#:[id number] Intake, IV Titration 78.0 369.25 Amount Norepinephrine 4 mg In 78.0 369.25 Sodium Chloride 0.9% 250 ml @ Titrate IV .Q0M [facility]ON[facility] Rx#:[id number] Output: Urine 1050 3010 250 Other: Voiding Method Indwelling Catheter Indwelling Catheter ABP, PAP, CO, CI - Last Documented Arterial Blood Pressure 135/58 - Exam - Constitutional General appearance: cooperative, mild acute distress, obese - EENT Eyes: anicteric sclerae, PERRLA, normal appearance ENT: hearing grossly normal - Neck Neck: no lymphadenopathy, normal ROM, no other, no rigidity, no stridor, no thyromegaly - Respiratory Respiratory: bilateral: CTA, negative: diminished, dullness, rales, rhonchi - Cardiovascular Rhythm: regular Heart sounds: normal: S1, S2 Abnormal Heart Sounds: 2/5 systolic murmur, no diastolic murmur, no rub, no S3 Gallop, no S4 Gallop, no click, no other - Gastrointestinal General gastrointestinal: normal bowel sounds, soft - Integumentary Integumentary: no rash - Neurologic Neurologic: CNII-XII intact - Musculoskeletal Musculoskeletal: Gait not assessed, strength equal bilaterally - Psychiatric Psychiatric: A&O x's 3, appropriate affect - Labs CBC & Chem 7: 05/18/18 04:28 05/18/18 04:28 Labs: Abnormal Lab Results - Last 24 Hours (Table) 05/17/18 05/17/18 05/17/18 Range/Units 12:43 12:52 16:13 RBC (3.80-5.40) m/uL Hgb (11.4-16.0) gm/dL Hct (34.0-46.0) % Lymphocytes # (1.0-4.8) k/uL ABG pH 7.18 L* (7.35-7.45) ABG pCO2 (35-45) mmHg ABG pO2 (83-108) mmHg ABG HCO3 16 L (21-25) mmol/L ABG Total CO2 18 L (19-24) mmol/L ABG O2 Saturation 97.7 H (94-97) % Potassium (3.5-5.1) mmol/L Carbon Dioxide (22-30) mmol/L BUN (7-17) mg/dL Creatinine (0.52-1.04) mg/dL Glucose (74-99) mg/dL Calcium (8.4-10.2) mg/dL Magnesium (1.6-2.3) mg/dL Iron 42 L (50-170) ug/dL AST (14-36) U/L Alkaline Phosphatase (38-126) U/L Total Protein (6.3-8.2) g/dL Albumin (3.5-5.0) g/dL U Random Total Protein 47 H (<12) mg/dL 05/17/18 05/18/18 05/18/18 Range/Units 18:00 04:28 04:28 RBC 3.51 L (3.80-5.40) m/uL Hgb 9.6 L (11.4-16.0) gm/dL Hct 31.0 L (34.0-46.0) % Lymphocytes # 0.5 L (1.0-4.8) k/uL ABG pH 7.23 L (7.35-7.45) ABG pCO2 46 H (35-45) mmHg ABG pO2 145 H (83-108) mmHg ABG HCO3 19 L (21-25) mmol/L ABG Total CO2 (19-24) mmol/L ABG O2 Saturation 99.3 H (94-97) % Potassium 2.9 L (3.5-5.1) mmol/L Carbon Dioxide 20 L (22-30) mmol/L BUN 65 H (7-17) mg/dL Creatinine 2.74 H (0.52-1.04) mg/dL Glucose 200 H (74-99) mg/dL Calcium 6.6 L (8.4-10.2) mg/dL Magnesium 2.6 H (1.6-2.3) mg/dL Iron (50-170) ug/dL AST 56 H (14-36) U/L Alkaline Phosphatase 132 H (38-126) U/L Total Protein 5.5 L (6.3-8.2) g/dL Albumin 2.5 L (3.5-5.0) g/dL U Random Total Protein (<12) mg/dL Microbiology - Last 24 Hours (Table) 05/17/18 12:43 Urine Culture - Preliminary Urine,Catheterized Assessment and Plan Plan: 1. Acute renal failure secondary to dehydration with ATN from possible ibuprofen use. Ultrasound shows chronic medical renal disease, nephrology on consult will continue with IV hydration, ibuprofen and acetaminophen levels ordered, patient received 3.5 mL of normal saline, will monitor I&O's. Continue bicarb drip 2. Dizziness secondary to dehydration. Will continue with IV hydration with normal saline at 50 per hour with bicarb at 100 mg/h, monitor I&O's. 3. Anemia, possible from chronic disease, will check iron profile and monitor hemoglobin daily. Iron 45 normal iron saturation 4. Hypertension. Patient currently hypotensive, valsartan/hydrochlorothiazide currently on hold. 5. Chronic pain. Motrin discontinued, will continue with IV morphine 2 mg IV push every 6, and OxyContin 15 mg extended release. Gabapentin reinitiated at 300 mg daily at bedtime 6. Hypothyroidism. continue with levothyroxine 200 MCG daily 7. Diabetes mellitus type 2. Continue Tradjenta 5 mg daily and Accu-Cheks. 8. ALLERGIC rhinitis. Continue singular 10 mg daily. 10. DVT/GI prophylaxis. Heparin subcu 11. Metabolic acidosis secondary to acute on chronic kidney disease improved with bicarb drip. Continue bicarb drip at 100 mL per hour
--- NOTE | 2018-05-18 11:01 | P.CNPUL ---
History of Present Illness Consult date: 05/18/18 Requesting physician: Ar Burnette Reason for consult: dyspnea, other Chief complaint: Acute renal failure, acute metabolic acidosis, dyspnea, hypotension History of present illness: This is a 68-year-old white female patient of Dr. Shaw, initially resented to the emergency department on 05/16/2018 per EMS after a near syncopal episode, sustaining multiple falls at home. The patient's appetite had been poor at home, patient hadn't drank or eaten a few days. She was lightheaded, she had hit her head and neck in one of those falls. She denied any chest pain, palpitations, or difficulty breathing. No abdominal pain, no nausea, vomiting or diarrhea. She continued to take her blood pressure medications. Her past medical history includes hypertension, hypothyroidism, diabetes mellitus, previous surgeries including back surgery, , cholecystectomy, hysterectomy. She is a never smoker. Initial chest x-ray showed a chronically elevated right diaphragm, no other acute lung disease. Brain and cervical CT were negative. EKG shows sinus rhythm with first-degree AV block, and a possible inferior infarct of undetermined age. Echocardiogram showed left ventricle systolic function with EF of 50-55%, mild MR, mild TR, and mild pulmonary hypertension with right-sided pressures of 38 mmHg. Initial blood work showed WBC of 10.6, hemoglobin of 10.4, sodium of 132, potassium is 3.0, chloride was 99, CO2 was 16, BUN was 84, and creatinine was 5.47, plasma lactic acid was normal at 0.7, total CK was 700, CK-MB was 12.3, troponin was negative 1, urinalysis showed 1+ protein. Occult stool was negative, Tylenol level was less than 10. Patient denies previous history of kidney disease, apparently she had been taking increased amounts of Motrin. Nephrology is following, patient was initially admitted to the floor, however she became hypotensive, and she was transferred to the intensive care unit for further monitoring, blood gas was obtained, and showed pO2 of 103, pCO2 44, and pH was 7.18, this was done on FiO2 of 28%, was consistent with found non-anion gap metabolic acidosis, likely due to acute kidney injury. Patient's systolic blood pressure was in the 50s, she was started on fluid boluses, and received a total of 3 L, she was placed on D5W with 3 A of bicarb at a rate of 100 ML per hour, placed on BiPAP support in view of her lethargy, some shortness of breath related to profound metabolic acidosis. Repeat blood gas showed improvement with pO2 of 145, pCO2 of 46 and pH of 7.23, this was done on FiO2 of 40%. Patient remains on BiPAP 's morning, pressures of 10 and 5, and FiO2 of 40%, she is calm and comfortable, she is awake, alert, responding appropriately, denies any shortness of breath, we will remove the BiPAP in place the nasal cannula. Chest x-ray was reviewed with Dr. Reyna, shows stable findings, with basilar atelectasis, chronic elevation of the right hemidiaphragm. Levo fed is currently at 4 mics per minute, 0.9 normal saline at a rate of 50, D5W with 3 A of bicarb at a rate of 100 ML per hour. Review of Systems All systems: negative Constitutional: Reports weakness, Denies chills, Denies fever Eyes: denies blurred vision, denies pain Ears, nose, mouth and throat: Denies headache, Denies sore throat Cardiovascular: Denies chest pain, Denies shortness of breath Respiratory: Reports dyspnea, Denies cough Gastrointestinal: Denies abdominal pain, Denies diarrhea, Denies nausea, Denies vomiting Genitourinary: Denies dysuria, Denies hematuria Musculoskeletal: Reports frequent falls, Reports gait dysfunction, Denies myalgias Integumentary: Denies pruritus, Denies rash Neurological: Denies numbness, Denies weakness Psychiatric: Denies anxiety, Denies depression Endocrine: Denies fatigue, Denies weight change Past Medical History Past Medical History: Asthma, Diabetes Mellitus, GERD/Reflux, Hypertension, Pneumonia, Thyroid Disorder History of Any Multi-Drug Resistant Organisms: None Reported Past Surgical History: Back Surgery, Section, Cholecystectomy, Hysterectomy Additional Past Surgical History / Comment(s): right elbow, right ankle, right rotator cuff, Past Anesthesia/Blood Transfusion Reactions: Postoperative Nausea & Vomiting ( PONV) Past Psychological History: No Psychological Hx Reported Smoking Status: Never smoker Past Alcohol Use History: None Reported Past Drug Use History: None Reported - Past Family History Mother Additional Family Medical History / Comment(s): at age 94 from "old age " Father Additional Family Medical History / Comment(s): Diseased at age 94 from "old age " Medications and Allergies Home Medications Medication Instructions Recorded Confirmed Type Aspirin EC [Ecotrin Low Dose] 81 mg PO DAILY 05/16/18 05/16/18 History Estrogens, Conjugated [Premarin] 1.25 mg PO HS 05/16/18 05/16/18 History Gabapentin [Neurontin] 300 mg PO HS 05/16/18 05/16/18 History Glucosamine/Chondr Arrieta A Sod [Osteo 2 tab PO HS 05/16/18 05/16/18 History Bi-Flex Caplet] Ibuprofen [Motrin] 800 mg PO TID 05/16/18 05/16/18 History Levothyroxine Sodium [Synthroid] 200 mcg PO DAILY 05/16/18 05/16/18 History Loratadine [Claritin] 10 mg PO DAILY 05/16/18 05/16/18 History Montelukast [Singulair] 10 mg PO DAILY 05/16/18 05/16/18 History Omeprazole 40 mg PO BID 05/16/18 05/16/18 History Sucralfate [Carafate] 1 gm PO AC-TID 05/16/18 05/16/18 History Sulfamethox-Tmp 800-160Mg [Bactrim 1 tab PO BID 05/16/18 05/16/18 History DS 800-160 mg] Valsartan/Hydrochlorothiazide 1 tab PO DAILY 05/16/18 05/16/18 History [Valsartan-Hctz 320-25 mg Tab] oxyCODONE HCL [OxyCONTIN] 30 mg PO Q12H 05/16/18 05/16/18 History oxyCODONE-APAP 10-325MG [Percocet 1 tab PO BID 05/16/18 05/16/18 History 10-325 mg] sitaGLIPtin [Januvia] 100 mg PO DAILY 05/16/18 05/16/18 History Allergies Allergy/AdvReac Type Severity Reaction Status Date / Time Penicillins Allergy Rash/Hives Verified 05/16/18 16:42 Physical Exam Vitals: Vital Signs Temp Pulse Pulse Resp BP Pulse Ox 05/18/18 06:30 90 13 98 05/18/18 06:15 103 H 21 94 L 05/18/18 06:00 95 17 97 05/18/18 05:45 96 28 H 98 05/18/18 05:30 92 15 99 05/18/18 05:15 90 22 99 05/18/18 05:00 93 17 98 05/18/18 04:45 90 18 98 05/18/18 04:30 90 29 H 98 05/18/18 04:15 85 24 97 05/18/18 04:00 89 12 98 05/18/18 03:45 90 11 L 97 05/18/18 03:30 81 10 L 96 05/18/18 03:15 89 22 97 05/18/18 03:00 108 H 30 H 97 05/18/18 02:45 80 7 L 96 05/18/18 02:30 80 12 96 05/18/18 02:15 89 17 92 L 05/18/18 02:00 89 22 92 L 05/18/18 01:45 84 14 94 L 05/18/18 01:30 85 13 92 L 05/18/18 01:15 80 13 96 05/18/18 01:00 82 13 95 05/18/18 00:45 89 20 96 05/18/18 00:30 86 18 92 L 05/18/18 00:15 84 12 97 05/18/18 00:00 100.6 F H 84 14 92 L 05/17/18 23:45 82 19 96 05/17/18 23:30 85 30 H 98 05/17/18 23:15 82 14 97 05/17/18 23:00 80 18 94 L 05/17/18 22:45 82 13 91 L 05/17/18 22:30 80 12 97 05/17/18 22:15 80 12 97 05/17/18 22:00 76 17 97 05/17/18 21:45 87 19 95 05/17/18 21:30 81 15 97 05/17/18 21:15 80 15 96 05/17/18 21:00 75 13 96 18 20:45 80 13 98 05/17/18 20:30 77 18 97 05/17/18 20:15 81 12 97 05/17/18 20:00 99.2 F 78 13 98 05/17/18 19:45 76 12 99 05/17/18 19:30 77 13 98 05/17/18 19:15 75 13 96 05/17/18 19:00 80 16 96 05/17/18 18:00 69 15 94 L 05/17/18 17:00 74 05/17/18 16:45 71 05/17/18 16:30 71 05/17/18 16:00 96.8 F L 73 8 L 102/47 96 05/17/18 12:00 97.5 F L 61 63 13 64/36 97 Intake and Output 05/17/18 05/18/18 05/18/18 22:59 06:59 14:59 Intake Total 1410.25 1387.00 150 Output Total 1625 2185 250 Balance -214.75 -798.00 -100 Intake: IV 1150 1200 150 Dextrose 5% in Water 1, 700 800 100 000 ml @ 100 mls/hr IV . [id number] TONJA with Sodium Bicarb (1 Meq/ml) 150 ml Rx#:[id number] Sodium Chloride 0.9% 1, 350 400 50 000 ml @ 50 mls/hr IV . Q20H [facility]ON[facility] Rx#:[id number] Sodium Chloride 0.9% 1, 100 000 ml @ 999 mls/hr IV . Q1H1M ONE Rx#:[id number] Intake, IV Titration 260.25 187.00 Amount Norepinephrine 4 mg In 260.25 187.00 Sodium Chloride 0.9% 250 ml @ Titrate IV .Q0M [facility] Rx#:[id number] Output: Urine 1625 2185 250 Other: Voiding Method Indwelling Catheter Indwelling Catheter Weight 133 kg ABP, PAP, CO, CI - Last 8 Hours Arterial Blood Pressure 135/58 Arterial Blood Pressure 87/63 Arterial Blood Pressure 127/48 Arterial Blood Pressure 144/51 Arterial Blood Pressure 121/46 Arterial Blood Pressure 139/47 Arterial Blood Pressure 142/48 Arterial Blood Pressure 121/53 Arterial Blood Pressure 135/50 Arterial Blood Pressure 146/51 Arterial Blood Pressure 136/48 Arterial Blood Pressure 140/41 Arterial Blood Pressure 129/40 Arterial Blood Pressure 131/49 Arterial Blood Pressure 117/50 Arterial Blood Pressure 130/41 GENERAL EXAM: Alert, pleasant, 68-year-old obese white female, on BiPAP support blood pressures tended 5 and 40% comfortable in no apparent distress. HEAD: Normocephalic/atraumatic. EYES: Normal reaction of pupils, equal size. Conjunctiva pink, sclera white. NOSE: Clear with pink turbinates. THROAT: No erythema or exudates. NECK: No masses, no JVD, no thyroid enlargement, no adenopathy. CHEST: No chest wall deformity. Symmetrical expansion. LUNGS: Equal air entry with no crackles, wheeze, rhonchi or dullness. CVS: Regular rate and rhythm, normal S1 and S2, no gallops, no murmurs, no rubs ABDOMEN: Soft, nontender. No hepatosplenomegaly, normal bowel sounds, no guarding or rigidity. EXTREMITIES: No clubbing, no edema, no cyanosis, 2+ pulses and upper and lower extremities. MUSCULOSKELETAL: Muscle strength and tone normal. SPINE: No scoliosis or deformity SKIN: No rashes CENTRAL NERVOUS SYSTEM: Alert and oriented -3. No focal deficits, tone is normal in all 4 extremities. PSYCHIATRIC: Alert and oriented -3. Appropriate affect. Intact judgment and insight. Results - Laboratory Findings CBC and BMP: 05/18/18 04:28 05/18/18 04:28 ABG ABG pH 7.23 (7.35-7.45) L 05/17/18 18:00 ABG pCO2 46 mmHg (35-45) H 05/17/18 18:00 ABG pO2 145 mmHg (83-108) H 05/17/18 18:00 ABG O2 Saturation 99.3 % (94-97) H 05/17/18 18:00 PT/INR, D-dimer PT 10.5 sec (9.0-12.0) 05/16/18 16:00 INR 1.0 (<1.2) 05/16/18 16:00 Abnormal lab findings: Abnormal Labs 05/16/18 05/16/18 05/16/18 16:00 16:00 16:00 RBC Hgb 10.4 L Hct MCHC 30.3 L Neutrophils # 9.0 H Lymphocytes # 0.9 L APTT ABG pH ABG pCO2 ABG pO2 ABG HCO3 ABG Total CO2 ABG O2 Saturation Sodium 132 L Potassium 3.0 L Carbon Dioxide 16 L BUN 84 H Creatinine 5.47 H Glucose 122 H POC Glucose (mg/dL) Calcium 7.9 L Magnesium 3.1 H Iron AST 42 H Alkaline Phosphatase Total Creatine Kinase 700 H CK-MB (CK-2) 12.3 H Total Protein 6.1 L Albumin 2.8 L Urine Protein Hyaline Casts Urine Mucus U Random Total Protein 05/16/18 05/16/18 05/17/18 16:00 16:08 04:55 RBC Hgb Hct MCHC Neutrophils # Lymphocytes # APTT 35.8 H ABG pH ABG pCO2 ABG pO2 ABG HCO3 ABG Total CO2 ABG O2 Saturation Sodium Potassium Carbon Dioxide BUN Creatinine Glucose POC Glucose (mg/dL) 103 H Calcium Magnesium Iron AST Alkaline Phosphatase Total Creatine Kinase CK-MB (CK-2) Total Protein Albumin Urine Protein 1+ H Hyaline Casts 8 H Urine Mucus Rare H U Random Total Protein 05/17/18 05/17/18 05/17/18 06:05 06:46 06:46 RBC 3.73 L Hgb 10.4 L Hct 33.5 L MCHC Neutrophils # 8.4 H Lymphocytes # 0.8 L APTT ABG pH ABG pCO2 ABG pO2 ABG HCO3 ABG Total CO2 ABG O2 Saturation Sodium 133 L Potassium Carbon Dioxide 14 L BUN 81 H Creatinine 5.12 H Glucose 103 H POC Glucose (mg/dL) 109 H Calcium 6.6 L Magnesium Iron AST 50 H Alkaline Phosphatase Total Creatine Kinase CK-MB (CK-2) Total Protein 5.5 L Albumin 2.4 L Urine Protein Hyaline Casts Urine Mucus U Random Total Protein 05/17/18 05/17/18 05/17/18 12:43 12:52 16:13 RBC Hgb Hct MCHC Neutrophils # Lymphocytes # APTT ABG pH 7.18 L* ABG pCO2 ABG pO2 ABG HCO3 16 L ABG Total CO2 18 L ABG O2 Saturation 97.7 H Sodium Potassium Carbon Dioxide BUN Creatinine Glucose POC Glucose (mg/dL) Calcium Magnesium Iron 42 L AST Alkaline Phosphatase Total Creatine Kinase CK-MB (CK-2) Total Protein Albumin Urine Protein Hyaline Casts Urine Mucus U Random Total Protein 47 H 05/17/18 05/18/18 05/18/18 18:00 04:28 04:28 RBC 3.51 L Hgb 9.6 L Hct 31.0 L MCHC Neutrophils # Lymphocytes # 0.5 L APTT ABG pH 7.23 L ABG pCO2 46 H ABG pO2 145 H ABG HCO3 19 L ABG Total CO2 ABG O2 Saturation 99.3 H Sodium Potassium 2.9 L Carbon Dioxide 20 L BUN 65 H Creatinine 2.74 H Glucose 200 H POC Glucose (mg/dL) Calcium 6.6 L Magnesium 2.6 H Iron AST 56 H Alkaline Phosphatase 132 H Total Creatine Kinase CK-MB (CK-2) Total Protein 5.5 L Albumin 2.5 L Urine Protein Hyaline Casts Urine Mucus U Random Total Protein - Diagnostic Findings Chest x-ray: report reviewed, image reviewed Additional studies: All chest x-rays, EKG, CT brain and cervical spine, ultrasound of the kidneys have been reviewed Assessment and Plan Plan: Assessment: #1. Hypotension related to hypovolemic shock and profound metabolic acidosis #2. Acute kidney injury related to poor oral intake, and NSAID use #3. Non-anion gap metabolic acidosis related to acute kidney injury #4. Dyspnea related to hypotension, and acidosis, improved #5. Weakness, falls at home #6. Diabetes mellitus #7. History of bronchial asthma, unspecified #8. GERD/reflux #9. Hypertension #10. Hypothyroidism #11. Previous history of pneumonia Plan: We will give the patient trial off the BiPAP support, she denies any difficulty breathing this morning, we'll try on a couple liters per nasal cannula, hemodynamically she is improving, we will try to wean off the levo fed. Continue with IV fluids, nephrology is following, patient is receiving bicarbonate replacement in the IV. Renal profile is improving. Present negative thus far. No fever or chills. Check random serum cortisol. Chest x- rays have been reviewed, no acute findings. I performed a history & physical examination of the patient and discussed their management with my nurse practitioner, Denise Lester. I reviewed the nurse practitioner's note and agree with the documented findings and plan of care. Lung sounds are diminished. The findings and the impression was discussed with the patient. I attest to the documentation by the nurse practitioner. Time with Patient: Greater than 30
[2018-05-18] MEDS: oxyCODONE ER 15 MG TAB.ER.12H PO SCH ×2 (11:06→22:31)
[2018-05-18 11:39] LABS: T4, Free (Free Thyroxine) 1.8 ng/dL (0.78-2.19)
[2018-05-18] MEDS: NOREPINEPHRINE 4 MG in SODIUM CHLORIDE 0.9% 250 ML IV SCH (12:28)
[2018-05-18] MEDS: OSTEO BIO FLEX PO SCH (21:11)
[2018-05-19] MEDS: DEXTROSE 5% IN WATER 1,000 ML with SODIUM BICARB (1 MEQ/ML) 150 ML IV SCH ×2
[2018-05-19 04:46] LABS: Basophils % (A) 0 %; Eosinophils # (A) 0.2 k/uL (0-0.7); Eosinophils % (A) 5 %; HCT 27.5 % (34.0-46.0); Lymphocytes # (A) 1.1 k/uL (1.0-4.8); Lymphocytes % (A) 25 %; MCH 28.1 pg (25.0-35.0); MCHC 32.7 g/dL (31.0-37.0); MCV 86.1 fL (80.0-100.0); Mean Platelet Volume 6.8; Monocytes # (A) 0.3 k/uL (0-1.0); Monocytes % (A) 6 %; Neutrophils # (A) 2.8 k/uL (1.3-7.7); Neutrophils % (A) 62 %; Platelet Count 170 k/uL (150-450); RBC 3.19 m/uL (3.80-5.40); RDW 15.5 % (11.5-15.5); WBC 4.5 k/uL (3.8-10.6)
[2018-05-19] MEDS: SODIUM CHLORIDE 0.9% 1,000 ML IV SCH (04:48)
[2018-05-19 04:54] LABS: Albumin 2.3 g/dL (3.5-5.0); Magnesium 2.3 mg/dL (1.6-2.3); Phosphorus 2.1 mg/dL (2.5-4.5); Potassium 3.2 mmol/L (3.5-5.1); Total Bilirubin 0.4 mg/dL (0.2-1.3); Total Protein 5.2 g/dL (6.3-8.2)
[2018-05-19 06:05] LABS: Basophils % (A) 0 %; Eosinophils # (A) 0.2 k/uL (0-0.7); Eosinophils % (A) 4 %; HCT 27.5 % (34.0-46.0); HGB 8.9 gm/dL (11.4-16.0); Lymphocytes % (A) 25 %; MCH 28.1 pg (25.0-35.0); MCHC 32.5 g/dL (31.0-37.0); MCV 86.4 fL (80.0-100.0); Monocytes # (A) 0.2 k/uL (0-1.0); Monocytes % (A) 5 %; Neutrophils # (A) 2.5 k/uL (1.3-7.7); Neutrophils % (A) 63 %; Platelet Count 168 k/uL (150-450); RBC 3.18 m/uL (3.80-5.40); RDW 15.3 % (11.5-15.5); WBC 3.9 k/uL (3.8-10.6)
[2018-05-19] MEDS: LEVOTHYROXINE 100 MCG TAB PO SCH (06:10)
[2018-05-19 06:12] LABS: Albumin 2.4 g/dL (3.5-5.0); Magnesium 2.3 mg/dL (1.6-2.3); Phosphorus 1.9 mg/dL (2.5-4.5); Total Bilirubin 0.4 mg/dL (0.2-1.3); Total Protein 5.2 g/dL (6.3-8.2)
--- NOTE | 2018-05-19 07:29 | XR ---
EXAMINATION TYPE: XR chest 1V DATE OF EXAM: 05/19/2018 COMPARISON: Prior chest x-ray 05/18/2018 HISTORY: Shortness of breath TECHNIQUE: Single frontal view of the chest is obtained. FINDINGS: Findings are stable. IMPRESSION: No significant interval change. Persistent elevated hemidiaphragm. There may be basilar atelectasis, difficult to exclude pneumonia, effusion. Follow-up recommended. Cardiomegaly.
[2018-05-19] MEDS: ASPIRIN 81 MG PO SCH (08:08)
[2018-05-19] MEDS: HEPARIN SODIUM,PORCINE 5,000 UNIT/ML 1 ML VIAL SQ SCH ×2 (08:08→20:03)
[2018-05-19] MEDS: oxyCODONE ER 15 MG TAB.ER.12H PO SCH ×2 (08:09→20:03)
[2018-05-19] MEDS: SUCRALFATE 1 GM TAB PO SCH ×3 (08:09→17:41)
[2018-05-19] MEDS: LINAGLIPTIN 5 MG TABLET PO SCH (08:09)
[2018-05-19] MEDS: MONTELUKAST 10 MG TAB PO SCH (08:09)
[2018-05-19] MEDS: LORATADINE 10 MG TAB PO SCH (08:09)
[2018-05-19] MEDS: POTASSIUM CHLORIDE ER 20 MEQ TAB.ER PO SCH ×2 (08:12→20:03)
--- NOTE | 2018-05-19 09:29 | P.PN ---
Subjective Progress Note Date: 05/19/18 Principal diagnosis: Metabolic acidosis, hypotension, acute renal failure This is a 68-year-old white female patient of Dr. Shaw, initially resented to the emergency department on 05/16/2018 per EMS after a near syncopal episode, sustaining multiple falls at home. The patient's appetite had been poor at home, patient hadn't drank or eaten a few days. She was lightheaded, she had hit her head and neck in one of those falls. She denied any chest pain, palpitations, or difficulty breathing. No abdominal pain, no nausea, vomiting or diarrhea. She continued to take her blood pressure medications. Her past medical history includes hypertension, hypothyroidism, diabetes mellitus, previous surgeries including back surgery, , cholecystectomy, hysterectomy. She is a never smoker. Initial chest x-ray showed a chronically elevated right diaphragm, no other acute lung disease. Brain and cervical CT were negative. EKG shows sinus rhythm with first-degree AV block, and a possible inferior infarct of undetermined age. Echocardiogram showed left ventricle systolic function with EF of 50-55%, mild MR, mild TR, and mild pulmonary hypertension with right-sided pressures of 38 mmHg. Initial blood work showed WBC of 10.6, hemoglobin of 10.4, sodium of 132, potassium is 3.0, chloride was 99, CO2 was 16, BUN was 84, and creatinine was 5.47, plasma lactic acid was normal at 0.7, total CK was 700, CK-MB was 12.3, troponin was negative 1, urinalysis showed 1+ protein. Occult stool was negative, Tylenol level was less than 10. Patient denies previous history of kidney disease, apparently she had been taking increased amounts of Motrin. Nephrology is following, patient was initially admitted to the floor, however she became hypotensive, and she was transferred to the intensive care unit for further monitoring, blood gas was obtained, and showed pO2 of 103, pCO2 44, and pH was 7.18, this was done on FiO2 of 28%, was consistent with found non-anion gap metabolic acidosis, likely due to acute kidney injury. Patient's systolic blood pressure was in the 50s, she was started on fluid boluses, and received a total of 3 L, she was placed on D5W with 3 A of bicarb at a rate of 100 ML per hour, placed on BiPAP support in view of her lethargy, some shortness of breath related to profound metabolic acidosis. Repeat blood gas showed improvement with pO2 of 145, pCO2 of 46 and pH of 7.23, this was done on FiO2 of 40%. Patient remains on BiPAP 's morning, pressures of 10 and 5, and FiO2 of 40%, she is calm and comfortable, she is awake, alert, responding appropriately, denies any shortness of breath, we will remove the BiPAP in place the nasal cannula. Chest x-ray was reviewed with Dr. Reyna, shows stable findings, with basilar atelectasis, chronic elevation of the right hemidiaphragm. Levo fed is currently at 4 mics per minute, 0.9 normal saline at a rate of 50, D5W with 3 A of bicarb at a rate of 100 ML per hour. The patient is seen again today 05/19/2018 in follow-up in the intensive care unit. She is awake and alert in no acute distress. She is maintaining O2 saturations in the upper 90s on 2 L/m per nasal cannula. She's been afebrile. Hemodynamically stable. She has been off levo fed since 5 AM this morning. She has 0.9 at 50 MLS per hour. D5W with 3 a of bicarb at 100 mL per hour. Urine culture reveals no growth. White count 3.9. Hemoglobin 8.9. Creatinine 0.94. Bicarb 29. Anion gap 2. Potassium is being replaced. Objective - Vital Signs Vital signs: Vital Signs Temp 97.8 F 05/19/18 08:00 Pulse 84 05/19/18 09:00 Resp 13 05/19/18 09:00 BP 128/72 05/19/18 09:00 Pulse Ox 96 05/19/18 09:00 Intake & Output 05/18/18 05/19/18 05/19/18 18:59 06:59 18:59 Intake Total 2290.75 1879.876 450 Output Total 3365 2780 550 Balance -1074.25 -900.124 -100 Weight 130 kg Intake: IV 2250 1800 450 Dextrose 5% in Water 1, 1250 1200 300 000 ml @ 100 mls/hr IV . [id number] [facility] with Sodium Bicarb (1 Meq/ml) 150 ml Rx#:[id number] Potassium Chloride 10 meq 400 In Water For Injection 1 100ml.bag @ 100 mls/hr IVPB Q1HR [facility] Rx#: [id number] Sodium Chloride 0.9% 1, 600 600 150 000 ml @ 50 mls/hr IV . Q20H [facility] Rx#:[id number] Intake, IV Titration 40.75 79.876 Amount Norepinephrine 4 mg In 40.75 79.876 Sodium Chloride 0.9% 250 ml @ Titrate IV .Q0M [facility] Rx#:[id number] Output: Urine 3365 2780 550 Other: Voiding Method Indwelling Catheter Indwelling Catheter Indwelling Catheter # Bowel Movements 1 1 ABP, PAP, CO, CI - Last Documented Arterial Blood Pressure 101/82 - Exam GENERAL EXAM: Alert, pleasant, 68-year-old morbidly obese female, on 2 L/m per nasal cannula. No acute distress. HEAD: Normocephalic/atraumatic. EYES: Normal reaction of pupils, equal size. Conjunctiva pink, sclera white. NOSE: Clear with pink turbinates. THROAT: No erythema or exudates. NECK: No masses, no JVD, no thyroid enlargement, no adenopathy. CHEST: No chest wall deformity. Symmetrical expansion. LUNGS: Equal air entry with no crackles, wheeze, rhonchi or dullness. CVS: Regular rate and rhythm, normal S1 and S2, no gallops, no murmurs, no rubs ABDOMEN: Soft, nontender. No hepatosplenomegaly, normal bowel sounds, no guarding or rigidity. EXTREMITIES: No clubbing, no edema, no cyanosis, 2+ pulses and upper and lower extremities. MUSCULOSKELETAL: Muscle strength and tone normal. SPINE: No scoliosis or deformity SKIN: No rashes CENTRAL NERVOUS SYSTEM: Alert and oriented -3. No focal deficits, tone is normal in all 4 extremities. PSYCHIATRIC: Alert and oriented -3. Appropriate affect. Intact judgment and insight. - Labs CBC & Chem 7: 05/19/18 05:44 05/19/18 05:44 Labs: Abnormal Lab Results - Last 24 Hours (Table) 05/17/18 05/17/18 05/18/18 Range/Units 12:43 12:52 04:28 RBC (3.80-5.40) m/uL Hgb (11.4-16.0) gm/dL Hct (34.0-46.0) % ABG pO2 (83-108) mmHg ABG Total CO2 (19-24) mmol/L ABG O2 Saturation (94-97) % Sodium (137-145) mmol/L Potassium (3.5-5.1) mmol/L BUN (7-17) mg/dL Glucose (74-99) mg/dL Calcium (8.4-10.2) mg/dL Phosphorus (2.5-4.5) mg/dL Iron 42 L (50-170) ug/dL AST (14-36) U/L Total Protein (6.3-8.2) g/dL Albumin (3.5-5.0) g/dL TSH 0.044 L (0.465-4.680) mIU/L Ur Random Microalbumin 8.5 H (0.0-1.9) mg/dL Microalb/Creat Ratio 61 H (0-30) mg/g Creat 05/18/18 05/18/18 05/19/18 Range/Units 05:41 17:45 04:35 RBC 3.19 L (3.80-5.40) m/uL Hgb 9.0 L (11.4-16.0) gm/dL Hct 27.5 L (34.0-46.0) % ABG pO2 170 H (83-108) mmHg ABG Total CO2 25 H (19-24) mmol/L ABG O2 Saturation 99.9 H (94-97) % Sodium (137-145) mmol/L Potassium 3.0 L (3.5-5.1) mmol/L BUN (7-17) mg/dL Glucose (74-99) mg/dL Calcium (8.4-10.2) mg/dL Phosphorus (2.5-4.5) mg/dL Iron (50-170) ug/dL AST (14-36) U/L Total Protein (6.3-8.2) g/dL Albumin (3.5-5.0) g/dL TSH (0.465-4.680) mIU/L Ur Random Microalbumin (0.0-1.9) mg/dL Microalb/Creat Ratio (0-30) mg/g Creat 05/19/18 05/19/18 05/19/18 Range/Units 04:35 05:44 05:44 RBC 3.18 L (3.80-5.40) m/uL Hgb 8.9 L (11.4-16.0) gm/dL Hct 27.5 L (34.0-46.0) % ABG pO2 (83-108) mmHg ABG Total CO2 (19-24) mmol/L ABG O2 Saturation (94-97) % Sodium 136 L 134 L (137-145) mmol/L Potassium 3.2 L 3.0 L (3.5-5.1) mmol/L BUN 41 H 39 H (7-17) mg/dL Glucose 148 H 151 H (74-99) mg/dL Calcium 7.0 L 7.0 L (8.4-10.2) mg/dL Phosphorus 2.1 L 1.9 L (2.5-4.5) mg/dL Iron (50-170) ug/dL AST 61 H 61 H (14-36) U/L Total Protein 5.2 L 5.2 L (6.3-8.2) g/dL Albumin 2.3 L 2.4 L (3.5-5.0) g/dL TSH (0.465-4.680) mIU/L Ur Random Microalbumin (0.0-1.9) mg/dL Microalb/Creat Ratio (0-30) mg/g Creat Microbiology - Last 24 Hours (Table) 05/17/18 12:43 Urine Culture - Final Urine,Catheterized Assessment and Plan Assessment: Assessment: #1. Hypotension related to hypovolemic shock and profound metabolic acidosis #2. Acute kidney injury related to poor oral intake, and NSAID use #3. Non-anion gap metabolic acidosis related to acute kidney injury #4. Dyspnea related to hypotension, and acidosis, improved #5. Weakness, falls at home #6. Diabetes mellitus #7. History of bronchial asthma, unspecified #8. GERD/reflux #9. Hypertension #10. Hypothyroidism #11. Previous history of pneumonia Plan: The patient was seen and evaluated by Dr. Beard. Chest x-ray and labs reviewed. She has been off pressors since 5 AM. She is stable from the pulmonary and critical care standpoint. She'll be transferred out of the intensive care unit today. Continue with her current medications. Replace electrolytes. We'll continue to follow. I, the cosigning physician, performed a history & physical examination of the patient. Lungs sounds faint crackles in the posterior bases. Maintaining good O2 saturations in the 90s on 2 L/m per nasal cannula. I discussed the assessment and plan of care with my nurse practitioner, Becca Rodríguez. I attest to the above note as dictated by her. Time with Patient: Greater than 30
--- NOTE | 2018-05-19 09:55 | P.PN ---
Subjective Progress Note Date: 05/19/18 Seen and examined for the follow-up of acute kidney injury. Feels better today. Good urine output 6 L in last 24 hours.. Blood pressures stable currently off pressors. No nausea vomiting or diarrhea. Objective - Vital Signs Vital signs: Vital Signs Temp 97.8 F 05/19/18 08:00 Pulse 84 05/19/18 09:00 Resp 13 05/19/18 09:00 BP 128/72 05/19/18 09:00 Pulse Ox 96 05/19/18 09:00 Intake & Output 05/18/18 05/19/18 05/19/18 18:59 06:59 18:59 Intake Total 2290.75 1879.876 450 Output Total 3365 2780 550 Balance -1074.25 -900.124 -100 Weight 130 kg Intake: IV 2250 1800 450 Dextrose 5% in Water 1, 1250 1200 300 000 ml @ 100 mls/hr IV . [id number] [facility] with Sodium Bicarb (1 Meq/ml) 150 ml Rx#:[id number] Potassium Chloride 10 meq 400 In Water For Injection 1 100ml.bag @ 100 mls/hr IVPB Q1HR [facility] Rx#: [id number] Sodium Chloride 0.9% 1, 600 600 150 000 ml @ 50 mls/hr IV . Q20H [facility] Rx#:[id number] Intake, IV Titration 40.75 79.876 Amount Norepinephrine 4 mg In 40.75 79.876 Sodium Chloride 0.9% 250 ml @ Titrate IV .Q0M [facility] Rx#:[id number] Output: Urine 3365 2780 550 Other: Voiding Method Indwelling Catheter Indwelling Catheter Indwelling Catheter # Bowel Movements 1 1 ABP, PAP, CO, CI - Last Documented Arterial Blood Pressure 101/82 - Exam No acute distress S1-S2 heard Lungs clear Joyce catheter no edema - Labs CBC & Chem 7: 05/19/18 05:44 05/19/18 05:44 Labs: Abnormal Lab Results - Last 24 Hours (Table) 05/17/18 05/18/18 05/18/18 Range/Units 12:43 04:28 05:41 RBC (3.80-5.40) m/uL Hgb (11.4-16.0) gm/dL Hct (34.0-46.0) % ABG pO2 170 H (83-108) mmHg ABG Total CO2 25 H (19-24) mmol/L ABG O2 Saturation 99.9 H (94-97) % Sodium (137-145) mmol/L Potassium (3.5-5.1) mmol/L BUN (7-17) mg/dL Glucose (74-99) mg/dL Calcium (8.4-10.2) mg/dL Phosphorus (2.5-4.5) mg/dL AST (14-36) U/L Total Protein (6.3-8.2) g/dL Albumin (3.5-5.0) g/dL TSH 0.044 L (0.465-4.680) mIU/L Ur Random Microalbumin 8.5 H (0.0-1.9) mg/dL Microalb/Creat Ratio 61 H (0-30) mg/g Creat 05/18/18 05/19/18 05/19/18 Range/Units 17:45 04:35 04:35 RBC 3.19 L (3.80-5.40) m/uL Hgb 9.0 L (11.4-16.0) gm/dL Hct 27.5 L (34.0-46.0) % ABG pO2 (83-108) mmHg ABG Total CO2 (19-24) mmol/L ABG O2 Saturation (94-97) % Sodium 136 L (137-145) mmol/L Potassium 3.0 L 3.2 L (3.5-5.1) mmol/L BUN 41 H (7-17) mg/dL Glucose 148 H (74-99) mg/dL Calcium 7.0 L (8.4-10.2) mg/dL Phosphorus 2.1 L (2.5-4.5) mg/dL AST 61 H (14-36) U/L Total Protein 5.2 L (6.3-8.2) g/dL Albumin 2.3 L (3.5-5.0) g/dL TSH (0.465-4.680) mIU/L Ur Random Microalbumin (0.0-1.9) mg/dL Microalb/Creat Ratio (0-30) mg/g Creat 05/19/18 05/19/18 Range/Units 05:44 05:44 RBC 3.18 L (3.80-5.40) m/uL Hgb 8.9 L (11.4-16.0) gm/dL Hct 27.5 L (34.0-46.0) % ABG pO2 (83-108) mmHg ABG Total CO2 (19-24) mmol/L ABG O2 Saturation (94-97) % Sodium 134 L (137-145) mmol/L Potassium 3.0 L (3.5-5.1) mmol/L BUN 39 H (7-17) mg/dL Glucose 151 H (74-99) mg/dL Calcium 7.0 L (8.4-10.2) mg/dL Phosphorus 1.9 L (2.5-4.5) mg/dL AST 61 H (14-36) U/L Total Protein 5.2 L (6.3-8.2) g/dL Albumin 2.4 L (3.5-5.0) g/dL TSH (0.465-4.680) mIU/L Ur Random Microalbumin (0.0-1.9) mg/dL Microalb/Creat Ratio (0-30) mg/g Creat Microbiology - Last 24 Hours (Table) 05/17/18 12:43 Urine Culture - Final Urine,Catheterized Assessment and Plan Assessment: #1 nonoliguric acute kidney injury secondary to hemodynamic ATN with low blood pressures and also component of NSAID use. #2 Metabolic acidosis secondary to acute kidney injury resolved currently alkalotic #3 shock #4 hypertension but low on admission #5 diabetes #6 CKD stage III baseline creatinine 1.3 MG per DL. #7 hypokalemia secondary to polyuria and bicarb drip Plan: #1 renal function improved back to baseline. #2 off pressors. #3 stop bicarb drip and potassium replacement 40 mEq twice a day. And also check magnesium in the morning #4 avoid nephrotoxic agents and hypotensive episode #5 advised to avoid NSAIDs.
[2018-05-19] MEDS ORDERED: Phosphorus Replacement Protoco 1 EACH MISC MISCELLANE PRN (11:58)
[2018-05-19] MEDS ORDERED: POTASSIUM CHLORIDE ER 20 MEQ TAB.ER PO STA (12:02)
[2018-05-19] MEDS: POTASSIUM PHOSPHATE 10 MMOL in SODIUM CHLORIDE 0.9% 250 ML IV SCH ×2 (12:39→15:01)
--- NOTE | 2018-05-19 13:44 | P.PN ---
Subjective Progress Note Date: 05/19/18 This is a 68-year-old female patient with past medical history of hypertension, chronic pain, GERD, hypothyroidism, allergic rhinitis, and diabetes mellitus type 2. Patient reports over the last few days she hasn't been eating or drinking due to lack of appetite. She had multiple falls during the last few days, she reports she injured her right knee a few days ago but did not go in for evaluation. She then fell again while getting up off the toilet, she states she went to get up, was very lightheaded and fell forward. At that time her called EMS to bring her to the emergency department. Upon arrival patient was hypotensive at 83/26 heart rate was 66. Creatinine 5.47, BUN 84, troponin was negative. Chest x-ray shows chronic elevated right diaphragm, but no acute changes. CT of the head and cervical spine were negative for any fractures and no intracranial hemorrhage. Today the patient was evaluated, she reports she is still very dizzy upon standing. Home medications reviewed, she is on Motrin 800 mg 3 times a day, patient reports she has been taking this at home. Possible ATN from ibuprofen use, will obtain ibuprofen and acetaminophen levels. Creatinine slightly improved to 5.1 today after some IV fluids, will continue with IV fluids normal saline at 150. Nephrology on consult for acute renal failure. Will obtain echocardiogram, patient slightly anemic hemoglobin 10.4. Will obtain iron studies as well. Ultrasound of the kidneys reveal chronic medical renal disease, no hydronephrosis. 05/18 patient examined at bedside complains of significant pain in the neck and the back. The pressure 84/50 but it's difficult to assess as patient constantly moving her arm currently on 3 mics of Levophed managed in the ICU. Urine output 400 mL per hour. Patient had ABG yesterday with a pH of7.18 bicarb 16 status post 2 A of bicarb. With improvemen with improvement of the pH is 7.23. Labs obtained this morning suggested hemoglobin of 9.6, potassium is 2.9 status post repletion, BUN 65, creatinine 2.74 glucose 200, phosphorus 4.4, iron 42 and saturation to 47, total bilirubin 0.2, AST 56, ALT 29, alkaline phosphatase 132, urine creatinine 165 urine for protein 47. Retroperitoneal ultrasound was obtained with no hydronephrosis no sign of any pyelonephritis. Troponin 1 negative EKG with sinus rhythm with first acute block. Echocardiogram EF 50-55% no wall or valve abnormality seen. Continue fluids at 50 mL/h with bicarb drip running at 100 mL per hour. PTOT consult. Reinitiate patient on OxyContin extended release 15 mg twice a day 05/19 patient examined at bedside. Pain is controlled on oxycodone and gabapentin. Vital stable blood pressure 128/72. Patient has been off Levophed since 5 this morning urine output 200 mL per hour. Labs suggest creatinine 0.94 potassium 3 phosphorus is 1.9 status post repletion. Avoid nephrotoxic agents PT evaluation pending Objective - Vital Signs Vital signs: Vital Signs Temp 97.8 F 05/19/18 08:00 Pulse 77 05/19/18 13:00 Resp 14 05/19/18 13:00 BP 119/64 05/19/18 13:00 Pulse Ox 98 05/19/18 13:00 Intake & Output 05/18/18 05/19/18 05/19/18 18:59 06:59 18:59 Intake Total 2290.75 1879.876 700 Output Total 3365 2780 1110 Balance -1074.25 -900.124 -410 Weight 130 kg Intake: IV 2250 1800 700 Dextrose 5% in Water 1, 1250 1200 400 000 ml @ 100 mls/hr IV . [id number] [facility] with Sodium Bicarb (1 Meq/ml) 150 ml Rx#:[id number] Potassium Chloride 10 meq 400 In Water For Injection 1 100ml.bag @ 100 mls/hr IVPB Q1HR [facility] Rx#: [id number] Sodium Chloride 0.9% 1, 600 600 300 000 ml @ 50 mls/hr IV . Q20H [facility] Rx#:[id number] Intake, IV Titration 40.75 79.876 Amount Norepinephrine 4 mg In 40.75 79.876 Sodium Chloride 0.9% 250 ml @ Titrate IV .Q0M [facility] Rx#:[id number] Output: Urine 3365 2780 1110 Other: Voiding Method Indwelling Catheter Indwelling Catheter Indwelling Catheter # Bowel Movements 1 1 1 ABP, PAP, CO, CI - Last Documented Arterial Blood Pressure 101/82 - Exam - Constitutional General appearance: cooperative, no distress, obese - EENT Eyes: anicteric sclerae, PERRLA, normal appearance ENT: hearing grossly normal - Neck Neck: no lymphadenopathy, normal ROM, no other, no rigidity, no stridor, no thyromegaly - Respiratory Respiratory: bilateral: CTA, negative: diminished, dullness, rales, rhonchi - Cardiovascular Rhythm: regular Heart sounds: normal: S1, S2 Abnormal Heart Sounds: 2/5 systolic murmur, no diastolic murmur, no rub, no S3 Gallop, no S4 Gallop, no click, no other - Gastrointestinal General gastrointestinal: normal bowel sounds, soft - Integumentary Integumentary: no rash - Neurologic Neurologic: CNII-XII intact - Musculoskeletal Musculoskeletal: Gait not assessed, strength equal bilaterally - Psychiatric Psychiatric: A&O x's 3, appropriate affect - Labs CBC & Chem 7: 05/19/18 05:44 05/19/18 05:44 Labs: Abnormal Lab Results - Last 24 Hours (Table) 05/18/18 05/19/18 05/19/18 Range/Units 17:45 04:35 04:35 RBC 3.19 L (3.80-5.40) m/uL Hgb 9.0 L (11.4-16.0) gm/dL Hct 27.5 L (34.0-46.0) % Sodium 136 L (137-145) mmol/L Potassium 3.0 L 3.2 L (3.5-5.1) mmol/L BUN 41 H (7-17) mg/dL Glucose 148 H (74-99) mg/dL Calcium 7.0 L (8.4-10.2) mg/dL Phosphorus 2.1 L (2.5-4.5) mg/dL AST 61 H (14-36) U/L Total Protein 5.2 L (6.3-8.2) g/dL Albumin 2.3 L (3.5-5.0) g/dL 05/19/18 05/19/18 Range/Units 05:44 05:44 RBC 3.18 L (3.80-5.40) m/uL Hgb 8.9 L (11.4-16.0) gm/dL Hct 27.5 L (34.0-46.0) % Sodium 134 L (137-145) mmol/L Potassium 3.0 L (3.5-5.1) mmol/L BUN 39 H (7-17) mg/dL Glucose 151 H (74-99) mg/dL Calcium 7.0 L (8.4-10.2) mg/dL Phosphorus 1.9 L (2.5-4.5) mg/dL AST 61 H (14-36) U/L Total Protein 5.2 L (6.3-8.2) g/dL Albumin 2.4 L (3.5-5.0) g/dL Microbiology - Last 24 Hours (Table) 05/17/18 12:43 Urine Culture - Final Urine,Catheterized Assessment and Plan Plan: 1. Acute renal failure secondary to dehydration with ATN from possible ibuprofen use. Resolved Ultrasound shows chronic medical renal disease, nephrology on consult will continue with IV hydration, ibuprofen and acetaminophen levels ordered, patient received 3.5 mL of normal saline, will monitor I&O's. Continue bicarb drip 2. Dizziness secondary to dehydration. Will continue with IV hydration with normal saline at 50 per hour discontinue bicarbonate drip 3. Anemia, possible from chronic disease, will check iron profile and monitor hemoglobin daily. Iron 45 normal iron saturation 4. Hypertension. Patient currently hypotensive, valsartan/hydrochlorothiazide currently on hold. 5. Chronic pain. Motrin discontinued, will continue with IV morphine 2 mg IV push every 6, and OxyContin 15 mg extended release. Gabapentin reinitiated at 300 mg daily at bedtime 6. Hypothyroidism. continue with levothyroxine 200 MCG daily 7. Diabetes mellitus type 2. Continue Tradjenta 5 mg daily and Accu-Cheks. 8. ALLERGIC rhinitis. Continue singular 10 mg daily. 10. DVT/GI prophylaxis. Heparin subcu 11. Metabolic acidosis secondary to acute on chronic kidney disease improved with bicarb drip. Continue bicarb drip at 100 mL per hour
[2018-05-19] MEDS: OSTEO BIO FLEX PO SCH (20:02)
[2018-05-20] MEDS: SODIUM CHLORIDE 0.9% 1,000 ML IV SCH ×2 (05:05→20:24)
[2018-05-20] MEDS: LEVOTHYROXINE 100 MCG TAB PO SCH (05:06)
[2018-05-20] MEDS: POTASSIUM CHLORIDE ER 20 MEQ TAB.ER PO SCH ×2 (08:10→20:25)
[2018-05-20] MEDS: ASPIRIN 81 MG PO SCH (08:10)
[2018-05-20] MEDS: oxyCODONE ER 15 MG TAB.ER.12H PO SCH ×2 (08:10→20:25)
[2018-05-20] MEDS: MONTELUKAST 10 MG TAB PO SCH (08:10)
[2018-05-20] MEDS: LINAGLIPTIN 5 MG TABLET PO SCH (08:10)
[2018-05-20] MEDS: LORATADINE 10 MG TAB PO SCH (08:10)
[2018-05-20] MEDS: HEPARIN SODIUM,PORCINE 5,000 UNIT/ML 1 ML VIAL SQ SCH ×2 (08:10→20:25)
[2018-05-20] MEDS: SUCRALFATE 1 GM TAB PO SCH ×3 (08:10→17:46)
--- NOTE | 2018-05-20 09:12 | P.PN ---
Subjective Patient is seen in follow-up for acute kidney injury. Currently resting in bed. Good urine output. No vomiting or diarrhea. Potassium was low yesterday which was replaced. Labs from today are pending. Vital signs are stable. General: The patient appeared well nourished and normally developed. HEENT: Head exam is unremarkable. Neck is without jugular venous distension. LUNGS: Lungs are clear to auscultation and percussion. Breath sounds decreased. HEART: Rate and Rhythm are regular. First and second heart sounds normal. No murmurs, rubs or gallops. ABDOMEN: Abdominal exam reveals normal bowel sounds. Non-tender and non- distended. No evidence of peritonitis. EXTREMITITES: No clubbing, cyanosis, or edema. Objective - Vital Signs Vital signs: Vital Signs Temp 97.8 F 05/20/18 06:46 Pulse 67 05/20/18 06:46 Resp 20 05/20/18 06:46 BP 159/85 05/20/18 06:46 Pulse Ox 98 05/20/18 06:46 Intake & Output 05/19/18 05/20/18 05/20/18 18:59 06:59 18:59 Intake Total 1050 500 Output Total 1390 Balance -340 500 Intake: IV 800 Dextrose 5% in Water 1, 400 000 ml @ 100 mls/hr IV . [id number] [facility] with Sodium Bicarb (1 Meq/ml) 150 ml Rx#:[id number] Sodium Chloride 0.9% 1, 400 000 ml @ 50 mls/hr IV . Q20H [facility] Rx#:[id number] Intake, IV Titration 250 Amount Potassium Phosphate 10 250 mmol In Sodium Chloride 0 .9% 250 ml @ 125 mls/hr IV Q2H [facility] Rx#:[id number] Oral 500 Output: Urine 1390 Other: Voiding Method Indwelling Catheter Bedside Commode # Voids 3 # Bowel Movements 1 ABP, PAP, CO, CI - Last Documented Arterial Blood Pressure 101/82 - Labs CBC & Chem 7: 05/19/18 05:44 05/19/18 05:44 Assessment and Plan Plan: Assessment: 1. Nonoliguric acute kidney injury secondary to ATN secondary to hypotension and use of nonsteroidals. Creatinine down to 0.94 yesterday. 2. Hypokalemia from polyuria and intracellular shifting from bicarb. Status post placement. Magnesium replete. 3. Hypophosphatemia from poor oral intake and intracellular shifting from bicarbonate. Status post placement. 4. Diabetes mellitus. 5. Hypotension secondary to sepsis on admission. Resolved. 6. Metabolic acidosis secondary to acute kidney injury status post bicarb drip. Resolved. Plan: Avoid nephrotoxins. Encourage oral intake. Maintain normal saline at 50 mL an hour. Follow-up morning labs.
[2018-05-20] MEDS ORDERED: POTASSIUM CHLORIDE ER 20 MEQ TAB.ER PO STA (10:34)
[2018-05-20 10:52] LABS: Basophils % (A) 0 %; Eosinophils # (A) 0.1 k/uL (0-0.7); Eosinophils % (A) 3 %; HCT 30.2 % (34.0-46.0); HGB 9.6 gm/dL (11.4-16.0); Lymphocytes # (A) 0.8 k/uL (1.0-4.8); Lymphocytes % (A) 15 %; MCH 27.9 pg (25.0-35.0); MCHC 31.9 g/dL (31.0-37.0); MCV 87.4 fL (80.0-100.0); Mean Platelet Volume 6.7; Monocytes # (A) 0.3 k/uL (0-1.0); Monocytes % (A) 5 %; Neutrophils # (A) 3.6 k/uL (1.3-7.7); Neutrophils % (A) 72 %; Platelet Count 210 k/uL (150-450); RBC 3.45 m/uL (3.80-5.40); RDW 15.3 % (11.5-15.5); WBC 4.9 k/uL (3.8-10.6)
[2018-05-20 11:01] LABS: ALT 39 U/L (9-52); AST 82 U/L (14-36); Albumin 2.8 g/dL (3.5-5.0); Alkaline Phosphatase 125 U/L (38-126); Anion Gap 6 mmol/L; Blood Urea Nitrogen 19 mg/dL (7-17); Calcium 8.3 mg/dL (8.4-10.2); Carbon Dioxide 29 mmol/L (22-30); Chloride 103 mmol/L (98-107); Glucose 168 mg/dL (74-99); Magnesium 1.8 mg/dL (1.6-2.3); Phosphorus 1.9 mg/dL (2.5-4.5); Potassium 3.6 mmol/L (3.5-5.1); Sodium 138 mmol/L (137-145); Total Bilirubin 0.5 mg/dL (0.2-1.3); Total Protein 6.1 g/dL (6.3-8.2)
[2018-05-20] MEDS ORDERED: Phosphorus Replacement Protoco 1 EACH MISC MISCELLANE PRN (11:10)
[2018-05-20] MEDS ORDERED: POTASSIUM PHOSPHATE 10 MMOL in SODIUM CHLORIDE 0.9% 250 ML IV ONE (11:30)
[2018-05-20] MEDS: OSTEO BIO FLEX PO SCH (20:23)
[2018-05-21] MEDS ORDERED: ACETAMINOPHEN TAB 325 MG TAB PO PRN (04:41)
[2018-05-21] MEDS ORDERED: oxyCODONE ER 15 MG TAB.ER.12H PO SCH (05:00)
[2018-05-21] MEDS: LEVOTHYROXINE 100 MCG TAB PO SCH (05:07)
[2018-05-21 07:49] VITALS: BP 135/78; PULSE 54; RESP 20; TEMP 98.3
[2018-05-21] MEDS: POTASSIUM CHLORIDE ER 20 MEQ TAB.ER PO SCH (08:44)
[2018-05-21] MEDS: ASPIRIN 81 MG PO SCH (08:44)
[2018-05-21] MEDS: LINAGLIPTIN 5 MG TABLET PO SCH (08:44)
[2018-05-21] MEDS: MONTELUKAST 10 MG TAB PO SCH (08:44)
[2018-05-21] MEDS: SUCRALFATE 1 GM TAB PO SCH ×2 (08:44→12:06)
[2018-05-21] MEDS: HEPARIN SODIUM,PORCINE 5,000 UNIT/ML 1 ML VIAL SQ SCH (08:44)
[2018-05-21] MEDS: LORATADINE 10 MG TAB PO SCH (08:44)
--- NOTE | 2018-05-21 09:42 | P.PN ---
Subjective Patient is seen in follow-up for acute kidney injury. Currently resting in bed. Good urine output. No vomiting or diarrhea. She has been ambulating. Awaits placement to rehab. Vital signs are stable. General: The patient appeared well nourished and normally developed. HEENT: Head exam is unremarkable. Neck is without jugular venous distension. LUNGS: Lungs are clear to auscultation and percussion. Breath sounds decreased. HEART: Rate and Rhythm are regular. First and second heart sounds normal. No murmurs, rubs or gallops. ABDOMEN: Abdominal exam reveals normal bowel sounds. Non-tender and non- distended. No evidence of peritonitis. EXTREMITITES: No clubbing, cyanosis, or edema. Objective - Vital Signs Vital signs: Vital Signs Temp 98.3 F 05/21/18 07:15 Pulse 54 L 05/21/18 07:15 Resp 20 05/21/18 07:15 BP 135/78 05/21/18 07:15 Pulse Ox 94 L 05/21/18 07:15 Intake & Output 05/20/18 05/21/18 05/21/18 18:59 06:59 18:59 Intake Total 100 Balance 100 Intake: Oral 100 Other: Voiding Method Bedside Commode Bedside Commode # Voids 3 1 2 ABP, PAP, CO, CI - Last Documented Arterial Blood Pressure 101/82 - Labs CBC & Chem 7: 05/20/18 10:28 05/20/18 10:28 Labs: Abnormal Lab Results - Last 24 Hours (Table) 05/20/18 05/20/18 Range/Units 10:28 10:28 RBC 3.45 L (3.80-5.40) m/uL Hgb 9.6 L (11.4-16.0) gm/dL Hct 30.2 L (34.0-46.0) % Lymphocytes # 0.8 L (1.0-4.8) k/uL BUN 19 H (7-17) mg/dL Glucose 168 H (74-99) mg/dL Calcium 8.3 L (8.4-10.2) mg/dL Phosphorus 1.9 L (2.5-4.5) mg/dL AST 82 H (14-36) U/L Total Protein 6.1 L (6.3-8.2) g/dL Albumin 2.8 L (3.5-5.0) g/dL Assessment and Plan Plan: Assessment: 1. Nonoliguric acute kidney injury secondary to ATN secondary to hypotension and use of nonsteroidals. Creatinine down to 0.72 yesterday. 2. Hypokalemia from polyuria and intracellular shifting from bicarb. Status post placement. Magnesium replete. 3. Hypophosphatemia from poor oral intake and intracellular shifting from bicarbonate. Status post placement. 4. Diabetes mellitus. 5. Hypotension secondary to sepsis on admission. Resolved. 6. Metabolic acidosis secondary to acute kidney injury status post bicarb drip. Resolved. Plan: Avoid nephrotoxins. Encourage oral intake. Hep-Lock IV fluids. Stable for discharge from nephrology standpoint.
[2018-05-21 10:01] LABS: Basophils % (A) 0 %; Eosinophils # (A) 0.3 k/uL (0-0.7); Eosinophils % (A) 5 %; HCT 30.6 % (34.0-46.0); HGB 9.7 gm/dL (11.4-16.0); Lymphocytes # (A) 1.2 k/uL (1.0-4.8); Lymphocytes % (A) 22 %; MCHC 31.7 g/dL (31.0-37.0); MCV 88.3 fL (80.0-100.0); Monocytes # (A) 0.3 k/uL (0-1.0); Monocytes % (A) 6 %; Neutrophils # (A) 3.4 k/uL (1.3-7.7); Neutrophils % (A) 64 %; Platelet Count 226 k/uL (150-450); RBC 3.46 m/uL (3.80-5.40); RDW 15.3 % (11.5-15.5); WBC 5.3 k/uL (3.8-10.6)
[2018-05-21 10:09] LABS: ALT 49 U/L (9-52); AST 91 U/L (14-36); Albumin 2.8 g/dL (3.5-5.0); Alkaline Phosphatase 140 U/L (38-126); Anion Gap 6 mmol/L; Blood Urea Nitrogen 15 mg/dL (7-17); Carbon Dioxide 28 mmol/L (22-30); Chloride 104 mmol/L (98-107); Glucose 126 mg/dL (74-99); Magnesium 1.4 mg/dL (1.6-2.3); Phosphorus 2.2 mg/dL (2.5-4.5); Potassium 4.1 mmol/L (3.5-5.1); Sodium 138 mmol/L (137-145); Total Bilirubin 0.7 mg/dL (0.2-1.3)
[2018-05-21] MEDS: MAGNESIUM SULFATE-D5W PMX 1 GM in DEXTROSE/WATER 1 100ML.BAG IVPB SCH ×2 (12:00→13:21)
[2018-05-21] MEDS ORDERED: SENNOSIDES 8.6 MG TAB PO STA (13:51)
[2018-05-21] MEDS ORDERED: DOCUSATE 100 MG CAP PO STA (13:51)
--- NOTE | 2018-05-21 13:56 | P.DS ---
Providers Date of admission: 05/16/18 17:37 Attending physician: Ar Burnette MD Consults: 05/16/18 17:36 Consult Physician Urgent Consulting Provider: Katheryn Mcallister Consult Reason/Comments: Acute renal failure Do you want consulting provider notified?: Yes 05/17/18 15:00 Consult Physician Urgent Consulting Provider: Isaias Beard Consult Reason/Comments: icu management Do you want consulting provider notified?: Already Contacted Primary care physician: [facility] Hospital Course: This is a 68-year-old female patient with past medical history of hypertension, chronic pain, GERD, hypothyroidism, allergic rhinitis, and diabetes mellitus type 2. Patient reports over the last few days she hasn't been eating or drinking due to lack of appetite. She had multiple falls during the last few days, she reports she injured her right knee a few days ago but did not go in for evaluation. She then fell again while getting up off the toilet, she states she went to get up, was very lightheaded and fell forward. At that time her called EMS to bring her to the emergency department. Upon arrival patient was hypotensive at 83/26 heart rate was 66. Creatinine 5.47, BUN 84, troponin was negative. Chest x-ray shows chronic elevated right diaphragm, but no acute changes. CT of the head and cervical spine were negative for any fractures and no intracranial hemorrhage. Today the patient was evaluated, she reports she is still very dizzy upon standing. Home medications reviewed, she is on Motrin 800 mg 3 times a day, patient reports she has been taking this at home. Possible ATN from ibuprofen use, will obtain ibuprofen and acetaminophen levels. Creatinine slightly improved to 5.1 today after some IV fluids, will continue with IV fluids normal saline at 150. Nephrology on consult for acute renal failure. Will obtain echocardiogram, patient slightly anemic hemoglobin 10.4. Will obtain iron studies as well. Ultrasound of the kidneys reveal chronic medical renal disease, no hydronephrosis. 05/18 patient examined at bedside complains of significant pain in the neck and the back. The pressure 84/50 but it's difficult to assess as patient constantly moving her arm currently on 3 mics of Levophed managed in the ICU. Urine output 400 mL per hour. Patient had ABG yesterday with a pH of7.18 bicarb 16 status post 2 A of bicarb. With improvemen with improvement of the pH is 7.23. Labs obtained this morning suggested hemoglobin of 9.6, potassium is 2.9 status post repletion, BUN 65, creatinine 2.74 glucose 200, phosphorus 4.4, iron 42 and saturation to 47, total bilirubin 0.2, AST 56, ALT 29, alkaline phosphatase 132, urine creatinine 165 urine for protein 47. Retroperitoneal ultrasound was obtained with no hydronephrosis no sign of any pyelonephritis. Troponin 1 negative EKG with sinus rhythm with first acute block. Echocardiogram EF 50-55% no wall or valve abnormality seen. Continue fluids at 50 mL/h with bicarb drip running at 100 mL per hour. PTOT consult. Reinitiate patient on OxyContin extended release 15 mg twice a day 05/19 patient examined at bedside. Pain is controlled on oxycodone and gabapentin. Vital stable blood pressure 128/72. Patient has been off Levophed since 5 this morning urine output 200 mL per hour. Labs suggest creatinine 0.94 potassium 3 phosphorus is 1.9 status post repletion. Avoid nephrotoxic agents PT evaluation pending 05/20 Patient examined at bedside, had significant pain at night. oxycodone increased to 30 mg po BID and continue percocet as needed. avoid nephrotoxin and ibuprofen patient examined at [facility], no acute events overnight. bowel regimen initiated with senna and colace for constipation Discharge diagnosis 1. Acute renal failure secondary to dehydration with ATN from hypotension and ibuprofen use. 2. Dizziness secondary to dehydration. 3. Anemia, possible from chronic disease 4. Hypertension. 5. Chronic pain. 6. Hypothyroidism. 7. Diabetes mellitus type 2. 8. ALLERGIC rhinitis. 9. Metabolic acidosis secondary to acute on chronic kidney disease cc a copy of discharge to [facility] disposition to [facility] Plan - Discharge Summary Discharge Rx Participant: No New Discharge Prescriptions: New Potassium Chloride ER [K-Dur 20] 20 meq PO BID #60 tab.er.prt oxyCODONE ER [OxyCONTIN] 30 mg PO Q12HR 3 Days #12 tab Continue Sucralfate [Carafate] 1 gm PO AC-TID Gabapentin [Neurontin] 300 mg PO HS Montelukast [Singulair] 10 mg PO DAILY Levothyroxine Sodium [Synthroid] 200 mcg PO DAILY Glucosamine/Chondr [place]ri[place] A Sod [Osteo Bi-Flex Caplet] 2 tab PO HS Estrogens, Conjugated [Premarin] 1.25 mg PO HS sitaGLIPtin [Januvia] 100 mg PO DAILY Valsartan/Hydrochlorothiazide [Valsartan-Hctz 320-25 mg Tab] 1 tab PO DAILY Loratadine [Claritin] 10 mg PO DAILY Aspirin EC [Ecotrin Low Dose] 81 mg PO DAILY oxyCODONE-APAP 10-325MG [Percocet 10-325 mg] 1 tab PO BID 6 Days #7 tab Changed Omeprazole 40 mg PO AC-BRKFST #0 Discontinued oxyCODONE HCL [OxyCONTIN] 30 mg PO Q12H Ibuprofen [Motrin] 800 mg PO TID Sulfamethox-Tmp 800-160Mg [Bactrim DS 800-160 mg] 1 tab PO BID Discharge Medication List Aspirin EC [Ecotrin Low Dose] 81 mg PO DAILY 05/16/18 [History] Estrogens, Conjugated [Premarin] 1.25 mg PO HS 05/16/18 [History] Gabapentin [Neurontin] 300 mg PO HS 05/16/18 [History] Glucosamine/Chondr Arrieta A Sod [Osteo Bi-Flex Caplet] 2 tab PO HS 05/16/18 [History ] Levothyroxine Sodium [Synthroid] 200 mcg PO DAILY 05/16/18 [History] Loratadine [Claritin] 10 mg PO DAILY 05/16/18 [History] Montelukast [Singulair] 10 mg PO DAILY 05/16/18 [History] Sucralfate [Carafate] 1 gm PO AC-TID 05/16/18 [History] Valsartan/Hydrochlorothiazide [Valsartan-Hctz 320-25 mg Tab] 1 tab PO DAILY [History] sitaGLIPtin [Januvia] 100 mg PO DAILY 05/16/18 [History] Omeprazole 40 mg PO AC-BRKFST #0 05/20/18 [Rx] Potassium Chloride ER [K-Dur 20] 20 meq PO BID #60 tab.er.prt 05/20/18 [Rx] oxyCODONE ER [OxyCONTIN] 30 mg PO Q12HR 3 Days #12 tab 05/20/18 [Rx] oxyCODONE-APAP 10-325MG [Percocet 10-325 mg] 1 tab PO BID 6 Days #7 tab [Rx] Follow up Appointment(s)/Referral(s): Kp Shaw DO [Primary Care Provider] - 1-2 days Discharge Disposition: TRANSFER TO SNF/ECF
== END 2018-05-21 15:25 | DRG 682 ==
LOC: EC 15:42 → 3NMEDONC 17:37 → 2SICU 05-17 06:14 → 4MS4W 05-19 16:22
PROVIDERS: ADMIT Internal Medicine; ATTEND Internal Medicine
DX: N17.0 Acute kidney failure with tubular necrosis (principal); R57.1 Hypovolemic shock; E87.4 Mixed disorder of acid-base balance; J98.11 Atelectasis; E11.22 Type 2 diabetes mellitus with diabetic chronic kidney disease; I08.1 Rheumatic disorders of both mitral and tricuspid valves; E83.39 Other disorders of phosphorus metabolism; I27.20 Pulmonary hypertension, unspecified; N14.1 Nephropathy induced by other drugs, medicaments and biological substances; I44.0 Atrioventricular block, first degree; T39.315A Adverse effect of propionic acid derivatives, initial encounter; I12.9 Hypertensive chronic kidney disease with stage 1 through stage 4 chronic kidney disease, or unspecified chronic kidney disease; N18.3 Chronic kidney disease, stage 3 (moderate); E86.0 Dehydration; E87.6 Hypokalemia; D63.8 Anemia in other chronic diseases classified elsewhere; K21.9 Gastro-esophageal reflux disease without esophagitis; J45.909 Unspecified asthma, uncomplicated; E03.9 Hypothyroidism, unspecified; G89.29 Other chronic pain; M19.90 Unspecified osteoarthritis, unspecified site; M54.2 Cervicalgia; R29.6 Repeated falls; Z79.890 Hormone replacement therapy; Z79.84 Long term (current) use of oral hypoglycemic drugs; Z79.1 Long term (current) use of non-steroidal anti-inflammatories (NSAID); Z79.82 Long term (current) use of aspirin; Z79.891 Long term (current) use of opiate analgesic; Z79.899 Other long term (current) drug therapy; Z90.49 Acquired absence of other specified parts of digestive tract; Z98.891 History of uterine scar from previous surgery; Z90.710 Acquired absence of both cervix and uterus; Z87.01 Personal history of pneumonia (recurrent); Z91.81 History of falling; Z88.0 Allergy status to penicillin; W18.39XA Other fall on same level, initial encounter; Y92.002 Bathroom of unspecified non-institutional (private) residence as the place of occurrence of the external cause
CPT/HCPCS: 36415; 51701; 70450; 71045; 71046; 72125; 76770; 80053; 80299; 81001; 82043; 82272; 82533; 82550; 82553; 82570; 82805; 83520; 83540; 83550; 83605; 83735; 84100; 84132; 84156; 84439; 84443; 84484; 85025; 85610; 85730; 87086; 93005; 93306; 94660; 94760; 96360; 99285

== ENCOUNTER → 2018-09-30 | Outpatient (CLI) | payer MEDICARE ==
--- NOTE | 2018-10-02 13:37 | MM ---
Reason for exam: screening (asymptomatic). Last mammogram was performed 1 year ago. History: Patient is postmenopausal. Benign left mammotome panel of the left breast, July 12, 2013. Benign left mammotome panel of the left breast, April 13, 2007. Excisional biopsy of the left breast, April 06, 2001. Taking estrogen for 26 years 9 months beginning at age 35. Physical Findings: A clinical breast exam by your physician is recommended on an annual basis and results should be correlated with mammographic findings. MG 3D Screening Mammo W/Cad Bilateral CC, MLO, and XCCL view(s) were taken. Prior study comparison: September 17, 2017, bilateral MG 3d screening mammo w/cad. August 14, 2016, bilateral MG 3d screening mammo w/cad. There are scattered fibroglandular densities. Finding: There are typically benign dystrophic, round, linear, grouped and regional calcifications in both breasts. Previous mammotome biopsy in the left breast. There is no discrete abnormality. ASSESSMENT: Benign, BI-RAD 2 RECOMMENDATION: Routine screening mammogram of both breasts in 1 year.
== END | disposition home or self-care (01) ==
LOC: RADMAMWWP 11:10
PROVIDERS: ATTEND Family Medicine
DX: Z12.31 Encounter for screening mammogram for malignant neoplasm of breast (principal)
CPT/HCPCS: 77063; 77067

== ENCOUNTER → 2019-05-20 | Outpatient (CLI) | payer MEDICARE | END | disposition home or self-care (01) | LOC: LABWHC1 10:21 | PROVIDERS: ATTEND Orthopaedic Surgery Hand Surgery | DX: M79.642 Pain in left hand (principal); Z48.89 Encounter for other specified surgical aftercare; I10 Essential (primary) hypertension; E03.9 Hypothyroidism, unspecified; E11.9 Type 2 diabetes mellitus without complications; Z98.890 Other specified postprocedural states; Z68.41 Body mass index [BMI] 40.0-44.9, adult | CPT/HCPCS: 87070; 87075; 87205 ==

== ENCOUNTER → 2019-12-29 | Outpatient (CLI) | payer MEDICARE ==
--- NOTE | 2020-01-03 09:07 | MM ---
Reason for exam: screening (asymptomatic). Last mammogram was performed 1 year and 3 months ago. History: Patient is postmenopausal. Benign left mammotome panel of the left breast, July 12, 2013. Benign left mammotome panel of the left breast, April 13, 2007. Excisional biopsy of the left breast, April 06, 2001. Took hormonal contraceptives for 7 years. Taking estrogen for 26 years 9 months beginning at age 35. Physical Findings: A clinical breast exam by your physician is recommended on an annual basis and results should be correlated with mammographic findings. MG 3D Screening Mammo W/Cad Bilateral CC and MLO view(s) were taken. Prior study comparison: September 30, 2018, bilateral MG 3d screening mammo w/cad. September 17, 2017, bilateral MG 3d screening mammo w/cad. There are scattered fibroglandular densities. Finding #1: There is a 7 mm circumscribed oval mass located 11 cm from the nipple in the inner quadrant, middle position of the left breast. Finding #2: There are vascular, dystrophic, round, linear, scattered and grouped calcifications in both breasts. Previous mammotome biopsy in the left breast. There is a chronic nodularity in the left breast. Developing 10mm asymmetry right middle depth outer lower quadrant CC 15/66, XCCL 12/60 and MLO 13/75. Increase in number of calcifications since September 30, 2018 and September 17, 2017. ASSESSMENT: Incomplete: need additional imaging evaluation, BI-RAD 0 RECOMMENDATION: Ultrasound of both breasts. [facility] will attempt to contact patient to return for ultrasound.
== END | disposition home or self-care (01) ==
LOC: RADMAMWWP 15:09
PROVIDERS: ATTEND Family Medicine
DX: Z12.31 Encounter for screening mammogram for malignant neoplasm of breast (principal)
CPT/HCPCS: 77063; 77067

== ENCOUNTER → 2020-01-27 | Outpatient (CLI) | payer MEDICARE ==
[2020-01-27 11:47] VITALS: BP 148/87; PULSE 96; RESP 18; TEMP 97.7
--- NOTE | 2020-01-27 11:56 | P.GSHP ---
History of Present Illness H&P Date: 01/27/20 Chief Complaint: mass in left breast Jazzy is a 69 year old white female seen in consultation for Dr. Irizarry who had a routine 3-D mammogram done 12-29-19, after which it was recommended she have an ultrasound of both breast which was done on 01-27-20. This showed a l esion at 10:00 left breast which was 0.6 x 0.3 cm in size for which biopsy was recommended. Nothing of concern in the right breast. The patient does not feel anything of concern herself in her breasts. She is not complaining of any pain masses nodules or changes in her breast. Family History: mother: skin cancer Hormonal history: Menarche: 13 , breast fed: yes, first born at 25 menopause: hysterectomy at 35, endometriosis ovaries removed as well control pills: 9 years Hormones: estrogen for 34 years Surgical history: Hysterectomy with bilateral oophorectomy Right elbow surgery Right ankle surgery Right rotator cuff Back surgery Cholecystectomy Partial left shoulder replacement Right knee replacement 3 sinus surgeries Nasal surgery Ganglion cyst left hand Medical history: pain management for back and neck cervical neck pain/arthritis asthma Iron deficiency anemia Diabetes Reflux Hypertension Osteoarthritis Hypothyroid Social History: smoke: none alcohol: none drugs: none ( belbuca, percocet) - Constitutional Constitutional: Denies chills, Denies fever - EENT Comment: wears glasses Eyes: denies blurred vision, denies pain Ears: deny: decreased hearing, tinnitus Ears, nose, mouth and throat: Reports sore throat, Denies headache - Breasts Breasts: bilateral: as per HPI - Cardiovascular Cardiovascular: Reports high blood pressure - Respiratory Comment: asthma - Gastrointestinal Comment: reflux Gastrointestinal: Reports constipation - Genitourinary (Female) Genitourinary: Reports urge incontinence - Menstruation Menstruation: Reports post hysterectomy - Musculoskeletal Comment: osteoarthritis Musculoskeletal: Reports as per HPI - Integumentary Comment: Psoriasis/bruising Integumentary: Reports rash - Neurological Neurological: Denies numbness, Denies weakness - Psychiatric Psychiatric: Denies anxiety, Denies depression - Endocrine Comment: hypothyroid Endocrine: Reports fatigue - Hematologic/Lymphatic Comment: easy bruising took aspirin stopped 3 months ago - Allergic/Immunologic Allergic/Immunologic: Reports seasonal allergies Past Medical History Past Medical History: Asthma, Blood Disorder, Diabetes Mellitus, GERD/Reflux, Hypertension, Pneumonia, Thyroid Disorder Additional Past Medical History / Comment(s): IRON DEFICIENCY ANEMIA. History of Any Multi-Drug Resistant Organisms: None Reported Past Surgical History: Back Surgery, Section, Cholecystectomy, Hysterectomy Additional Past Surgical History / Comment(s): right elbow, right ankle, right rotator cuff, Past Anesthesia/Blood Transfusion Reactions: Postoperative Nausea & Vomiting (PONV) Past Psychological History: No Psychological Hx Reported Past Alcohol Use History: None Reported Past Drug Use History: None Reported - Past Family History Mother Additional Family Medical History / Comment(s): at age 94 from "old age" Father Additional Family Medical History / Comment(s): Diseased at age 94 from "old age " Medications and Allergies Home Medications Medication Instructions Recorded Confirmed Type Estrogens, Conjugated [Premarin] 1.25 mg PO HS 05/16/18 10/16/18 History Gabapentin [Neurontin] 300 mg PO HS 05/16/18 10/16/18 History Glucosamine/Chondr Arrieta A Sod [Osteo 2 tab PO HS 05/16/18 10/16/18 History Bi-Flex Caplet] Levothyroxine Sodium [Synthroid] 200 mcg PO DAILY 05/16/18 10/16/18 History Montelukast [Singulair] 10 mg PO DAILY 05/16/18 10/16/18 History sitaGLIPtin [Januvia] 100 mg PO DAILY 05/16/18 10/16/18 History Potassium Chloride ER [K-Dur 20] 20 meq PO BID #60 tab.er.prt 05/20/18 10/16/18 Rx Valsartan 320 mg PO DAILY 10/09/18 10/16/18 History Buprenorphine HCl [Belbuca] 600 mcg BC QAM 01/27/20 01/27/20 History Fluticasone Nasal [place] [Flonase 1 spray EA NOSTRIL QAM 01/27/20 01/27/20 History Nasal [place]] Lubiprostone [Amitiza] 8 mcg PO BID 01/27/20 01/27/20 History Omeprazole 40 mg PO BID 01/27/20 01/27/20 History oxyCODONE-APAP 10-325MG [Percocet 1 tab PO DAILY PRN 01/27/20 01/27/20 History 10-325 mg] Allergies Allergy/AdvReac Type Severity Reaction Status Date / Time adhesive Allergy Rash/Hives Unverified 01/27/20 11:25 Penicillins Allergy Rash/Hives Verified 01/27/20 11:25 Surgical - Exam BMI 40.4 - General obese - Eyes normal ocular movement - ENT no hearing loss, no congestion - Neck no masses, trachea midline - Respiratory normal respiratory effort, clear to auscultation - Cardiovascular Rhythm: regular Heart Sounds: normal: S1, S2 - Abdomen Abdomen: soft, non tender, bowel sounds, no guarding, no rigid, no rebound - Integumentary Psoriasis - Neurologic no disoriented, no combative - Musculoskeletal uses a cane - Psychiatric oriented to time, oriented to person, oriented to place, speech is normal, memory intact breast exam: BRA 48DDD inspection: Right breast larger than left breast, grade 3 ptosis bilateral, fungal infection under her left breast Palpation: Right breast: Multi-positional exam of the cystic changes no dominant masses or nodules of concern Right axilla: No adenopathy of concern Left breast: Multi-positional exam fibrocystic changes, no dominant masses or nodules of concern; particular attention to the ultrasound area of change in the left breast did not reveal a specific nodule of concern although there were fibrocystic changes and lipomatous like changes of tissue Left axilla: No adenopathy of concern Results Mammogram and ultrasound results reviewed Assessment and Plan Assessment: Impression: pain management for back and neck cervical neck pain/arthritis asthma Iron deficiency anemia Diabetes Reflux Hypertension Osteoarthritis Hypothyroid Ultrasound abnormality left breast Fungal infection under her left breast Asymmetry of the breast Plan: 1. Medical management of medical conditions 2. Ultrasound core biopsy left breast 3. Nystatin under her left breast 4. Patient advised to stop estrogen until results of biopsy obtained 5. Patient is to not take any aspirin or aspirin products for at least 5-7 days prior to biopsy CC: Dr. Colin sheehan 40 minutes, > 50% of time in planing and counseling Time with Patient: Greater than 30
== END | disposition home or self-care (01) ==
LOC: WWCWWP 11:13
PROVIDERS: ATTEND Surgery
DX: Z53.9 Procedure and treatment not carried out, unspecified reason (principal)

== ENCOUNTER → 2020-01-27 | Outpatient (CLI) | payer MEDICARE ==
--- NOTE | 2020-01-27 13:11 | USB ---
Reason for exam: additional evaluation requested from abnormal screening. History: Patient is postmenopausal. Benign left mammotome panel of the left breast, July 12, 2013. Benign left mammotome panel of the left breast, April 13, 2007. Excisional biopsy of the left breast, April 06, 2001. Took hormonal contraceptives for 7 years. Taking estrogen for 26 years 9 months beginning at age 35. Physical Findings: Nurse Summary: multiple movable nodularites felt throughout (nurse jj). US Breast Workup Limited YESSICA Left limited breast ultrasound including focal area of concern, retroareolar and axilla demonstrates a 0.6 x 0.3 x 0.3cm irregular, hypoechoic lesion at 10 o'clock, biospy at the palpable. Scanned left 7-11 o'clock. Right limited breast ultrasound including focal area of concern, retroareolar and axilla demonstrates no cystic or solid lesion seen. Scanned right 6-10 o'clock, difficult to image. 6 month follow up right mammogram. These results were verbally communicated with the patient and result sheet given to the patient on 01/27/20. ASSESSMENT: Suspicious, BI-RAD 4 RECOMMENDATION: Ultrasound core biopsy of the left breast. Called Dr. Shaw's office with mammographic findings and has scheduled an appointment for the patient for 01/27/[address] Reyes. Biopsy scheduled for 02/16/20 at 10:30. PRELIMINARY REPORT CALLED AND FAXED TO DR. REYES ON 01/27/20.
== END | disposition home or self-care (01) ==
LOC: RADUSWWP 09:28
PROVIDERS: ATTEND Family Medicine
DX: R92.8 Other abnormal and inconclusive findings on diagnostic imaging of breast (principal)

== ENCOUNTER → 2020-02-25 | Outpatient (CLI) | payer MEDICARE ==
[2020-02-25 11:23] VITALS: BP 130/74; PULSE 89; RESP 12; TEMP 98
--- NOTE | 2020-02-25 11:31 | P.PN ---
Subjective Progress Note Date: 02/25/20 Principal diagnosis: ultrasound biopsy: fat necrosis Jazzy is a 69 year old white female status post left breast ultrasound core biopsy on 02-16-20. The pathology was benign fibroadipose breast tissue with fat necrosis and parenchymal hemorrhage. It was felt to be concordant. The patient states postprocedure she did have some difficulty with removal of the tape. She does complain of some ecchymosis at the site. NO fever or chills. She has been off her Premarin since before the biopsy and has been having some night sweats. She would like to restart the Premarin. Medical history: Pain management for back and neck Cervical neck pain and arthritis Asthma Iron deficiency anemia Diabetes Reflux Hypertension Osteoarthritis Hypothyroid Surgical history Hysterectomy with bilateral vasectomy Multiple orthopedic surgeries (right knee, right elbow, right ankle, left rotator cuff, partial left shoulder replacement) Back surgery Cholecystectomy 3 sinus surgeries Nasal surgery Ganglion cyst left hand Objective - Vital Signs Vital signs: Intake & Output 02/24/20 02/25/20 02/25/20 18:59 06:59 18:59 Weight 112.491 kg - Exam BMI 38.8 - Constitutional General appearance: Present: obese - EENT Eyes: Present: EOMI ENT: Present: hearing grossly normal - Neck Neck: Present: normal ROM - Respiratory Respiratory: bilateral: CTA - Cardiovascular Rhythm: regular Heart sounds: normal: S1, S2 - Integumentary Integumentary Comment(s): Biopsy site left breast mild ecchymosis, no evidence of any infection - Psychiatric Psychiatric: Present: A&O x's 3, appropriate affect, intact judgment & insight Assessment and Plan Assessment: Impression: Fibrocystic breast changes Benign concordant ultrasound core biopsy of left breast Pain management for back and neck Cervical neck pain and arthritis Asthma Iron deficiency anemia Diabetes Reflux Hypertension Osteoarthritis Hypothyroid Plan: 1. Repeat left breast mammogram and ultrasound in 6 months with physician exam at that time 2. Medical management of medical conditions Cc: Dr. Irizarry encounter 15 minutes, > 50% of time spent in planning and counselling
== END | disposition home or self-care (01) ==
LOC: WWCWWP 10:58
PROVIDERS: ATTEND Surgery
DX: Z53.9 Procedure and treatment not carried out, unspecified reason (principal)

== ENCOUNTER → 2020-04-13 | Outpatient (CLI) | payer MEDICARE | END | disposition home or self-care (01) | LOC: LABWHC1 13:13 | PROVIDERS: ATTEND Family Medicine | DX: Z20.828 Contact with and (suspected) exposure to other viral communicable diseases (principal) | CPT/HCPCS: U0003; C9803 ==

== ENCOUNTER → 2020-04-19 | Outpatient (CLI) | payer MEDICARE ==
--- NOTE | 2020-04-19 15:15 | XR ---
EXAMINATION TYPE: XR chest 2V DATE OF EXAM: 04/19/2020 COMPARISON: 05/19/2018 HISTORY: Shortness of breath TECHNIQUE: Frontal and lateral views of the chest are obtained. FINDINGS: Scattered senescent parenchymal changes noted. Hyperinflation compatible with COPD. No evidence for infiltrate. No evidence for atelectasis. Heart size is stable. Mediastinal structures are stable and grossly unremarkable. No evidence for hilar prominence. Degenerative changes dorsal spine. IMPRESSION: 1. No evidence for acute pulmonary disease.
== END | disposition home or self-care (01) ==
LOC: RADXRMAIN 10:02
PROVIDERS: ATTEND Family Medicine
DX: R07.9 Chest pain, unspecified (principal)
CPT/HCPCS: 71046

== ENCOUNTER → 2020-08-15 | Outpatient (CLI) | payer MEDICARE ==
--- NOTE | 2020-08-15 11:16 | MM ---
Reason for exam: additional evaluation requested from prior study. Last mammogram was performed 6 months ago. History: Patient is postmenopausal. Benign US biopsy breast VAD LT of the left breast, February 16, 2020. Benign left mammotome panel of the left breast, July 12, 2013. Benign left mammotome panel of the left breast, April 13, 2007. Excisional biopsy of the left breast, April 06, 2001. Took hormonal contraceptives for 7 years. Taking estrogen for 26 years 9 months beginning at age 35. Physical Findings: Nurse did not find any significant physical abnormalities on exam. MG 3D Diag Mammo W/Cad LT CC and MLO view(s) were taken of the left breast. Prior study comparison: February 16, 2020, left breast MG diagnostic mammo LT wo CAD. December 29, 2019, bilateral MG 3d screening mammo w/cad. September 30, 2018, bilateral MG 3d screening mammo w/cad. September 17, 2017, bilateral MG 3d screening mammo w/cad. August 14, 2016, bilateral MG 3d screening mammo w/cad. There are scattered fibroglandular densities. No significant new findings when compared with previous films. These results were verbally communicated with the patient and result sheet given to the patient on 08/15/20. ASSESSMENT: Benign, BI-RAD 2 RECOMMENDATION: Return to routine screening mammogram schedule for both breasts.
== END ==
LOC: RADMAMWWP 10:11
PROVIDERS: ATTEND Surgery
DX: R92.8 Other abnormal and inconclusive findings on diagnostic imaging of breast (principal); Z78.0 Asymptomatic menopausal state
CPT/HCPCS: 77065; G0279; 77061

== ENCOUNTER → 2021-02-15 | Outpatient (CLI) | payer MEDICARE ==
--- NOTE | 2021-02-16 09:45 | MM ---
Reason for exam: screening (asymptomatic). Last mammogram was performed 6 months ago. History: Patient is postmenopausal. Benign US biopsy breast VAD LT of the left breast, February 16, 2020. Benign left mammotome panel of the left breast, July 12, 2013. Benign left mammotome panel of the left breast, April 13, 2007. Excisional biopsy of the left breast, April 06, 2001. Took hormonal contraceptives for 7 years. Taking estrogen for 26 years 9 months beginning at age 35. Physical Findings: A clinical breast exam by your physician is recommended on an annual basis and results should be correlated with mammographic findings. MG 3D Screening Mammo W/Cad Bilateral CC and MLO view(s) were taken. Prior study comparison: August 15, 2020, left breast MG 3d diag mammo w/cad LT. February 16, 2020, left breast MG diagnostic mammo LT wo CAD. There are scattered fibroglandular densities. Stable benign calcifications. There is no discrete abnormality. ASSESSMENT: Benign, BI-RAD 2 RECOMMENDATION: Routine screening mammogram of both breasts in 1 year.
== END | disposition home or self-care (01) ==
LOC: RADMAMWWP 09:25
PROVIDERS: ATTEND Family Medicine
DX: Z12.31 Encounter for screening mammogram for malignant neoplasm of breast (principal); Z78.0 Asymptomatic menopausal state; Z79.3 Long term (current) use of hormonal contraceptives
CPT/HCPCS: 77063; 77067

== ENCOUNTER → 2022-04-04 | Outpatient (CLI) | payer MEDICARE ==
--- NOTE | 2022-04-05 07:32 | MM ---
Reason for Exam: Screening (asymptomatic). Last mammogram was performed 1 year(s) and 2 month(s) ago. Patient History: Menarche at age 13. First Full-Term at age 25. Left ovary removed at age 35. Right ovary removed at age 35. Hysterectomy at age 35. Postmenopausal. Currently using Estrogen, beginning at age 35 for 26 years, 9 months. Patient used Hormonal Contraceptives for 7 years. 02/16/2020, Benign Core Biopsy on the left side. 07/12/2013, Benign Core Biopsy on the left side. 04/13/2007, Benign Core Biopsy on the left side. 04/06/2001, Benign Excisional Biopsy on the left side. Risk Values: Charisma 5 year model risk: 2.3%. NCI Lifetime model risk: 6.4%. Prior Study Comparison: 02/16/2020 Left Diagnostic Mammogram, [facility]. 08/15/2020 Left Diagnostic Mammogram, [facility]. 02/15/2021 Bilateral Screening Mammogram, [facility]. Tissue Density: There are scattered fibroglandular densities. Findings: Analyzed By CAD. There is no suspicious group of microcalcifications or new suspicious mass in either breast. Overall Assessment: Benign, BI-RAD 2 Management: Screening Mammogram of both breasts in 1 year. A clinical breast exam by your physician is recommended on an annual basis and results should be correlated with mammographic findings. Electronically signed and approved by: Evan Michael M.D. Radiologis
== END | disposition home or self-care (01) ==
LOC: RADMAMWWP 13:10
PROVIDERS: ATTEND Family Medicine
DX: Z12.31 Encounter for screening mammogram for malignant neoplasm of breast (principal)
CPT/HCPCS: 77063; 77067

== ENCOUNTER → 2023-04-10 | Outpatient (CLI) | payer MEDICARE ==
--- NOTE | 2023-04-13 16:33 | MM ---
Reason for Exam: Screening (asymptomatic). Last screening mammogram was performed 12 month(s) ago. Patient History: Menarche at age 13. First Full-Term at age 25. Left ovary removed at age 35. Right ovary removed at age 35. Hysterectomy at age 35. Postmenopausal. Currently using Estrogen, beginning at age 35 for 26 years, 9 months. Patient used Hormonal Contraceptives for 7 years. 02/16/2020, Benign Core Biopsy on the left side. 07/12/2013, Benign Core Biopsy on the left side. 04/13/2007, Benign Core Biopsy on the left side. 04/06/2001, Benign Excisional Biopsy on the left side. Risk Values: Charisma 5 year model risk: 2.4%. NCI Lifetime model risk: 6.1%. Prior Study Comparison: 08/15/2020 Left Diagnostic Mammogram, [facility]. 02/15/2021 Bilateral Screening Mammogram, [facility]. 04/04/2022 Bilateral MG 3D screening mammo w/cad, [facility]. Tissue Density: There are scattered fibroglandular densities. Findings: Analyzed By CAD. Bilateral grouped heterogeneous microcalcifications are redemonstrated, unchanged from prior exams. 3 microclips in the left breast indicate prior biopsies. There is no suspicious group of microcalcifications or new suspicious mass in either breast. Overall Assessment: Benign, BI-RAD 2 Management: Screening Mammogram of both breasts in 1 year. . Patient should continue monthly self-breast exams. A clinical breast exam by your physician is recommended on an annual basis. This exam should not preclude additional follow-up of suspicious palpable abnormalities. Note on Charisma scores and lifetime risk: 1. A Charisma score greater than 3% is considered moderate risk. If this is the case, consider specialist referral to assess eligibility for a risk reducing agent. 2. If overall lifetime risk for the development of breast cancer is 20% or higher, the patient may qualify for future screening with alternating mammogram and breast MRI. Electronically signed and approved by: Irish Ventura M.D. Radiologist
== END | disposition home or self-care (01) ==
LOC: RADMAMWWP 11:31
PROVIDERS: ATTEND Family Medicine
DX: Z12.31 Encounter for screening mammogram for malignant neoplasm of breast (principal); Z78.0 Asymptomatic menopausal state
CPT/HCPCS: 77063; 77067

== ENCOUNTER → 2024-04-12 | Outpatient (CLI) | payer MEDICARE ==
--- NOTE | 2024-04-13 08:55 | MM ---
Reason for Exam: Screening (asymptomatic). Last screening mammogram was performed 12 month(s) ago. Patient History: Menarche at age 13. First Full-Term at age 25. Left ovary removed at age 35. Right ovary removed at age 35. Hysterectomy at age 35. Postmenopausal. Patient has history of breast feeding. Currently using Estrogen, beginning at age 35 for 26 years, 9 months. Patient used Hormonal Contraceptives for 7 years. 02/16/2020, Benign Core Biopsy on the left side. 07/12/2013, Benign Core Biopsy on the left side. 04/13/2007, Benign Core Biopsy on the left side. 04/06/2001, Benign Excisional Biopsy on the left side. Risk Values: Charisma 5 year model risk: 2.4%. NCI Lifetime model risk: 5.8%. Prior Study Comparison: 09/17/2017 Bilateral Screening Mammogram, [facility]. 09/30/2018 Bilateral Screening Mammogram, [facility]. 12/29/2019 Bilateral Screening Mammogram, [facility]. 02/16/2020 Left Diagnostic Mammogram, [facility]. 08/15/2020 Left Diagnostic Mammogram, [facility]. 02/15/2021 Bilateral Screening Mammogram, [facility]. 04/04/2022 Bilateral MG 3D screening mammo w/cad, [facility]. 04/10/2023 Bilateral MG 3D screening mammo w/cad, [facility]. Tissue Density: There are scattered areas of fibroglandular density. Findings: Analyzed By CAD. Left breast surgical clip and biopsy clip. Right breast: There is no suspicious group of microcalcifications or new suspicious mass. Benign-appearing calcifications right breast. Left breast: There is no suspicious group of microcalcifications or new suspicious mass. Benign-appearing calcifications left breast. Overall Assessment: Benign, BI-RAD 2 Management: Screening Mammogram of both breasts in [address] [facility] will attempt to contact patient to return for supplemental views and ultrasound if indicated. Patient should continue monthly self-breast exams. A clinical breast exam by your physician is recommended on an annual basis. This exam should not preclude additional follow-up of suspicious palpable abnormalities. Note on Charisma scores and lifetime risk: 1. A Charisma score greater than 3% is considered moderate risk. If this is the case, consider specialist referral to assess eligibility for a risk reducing agent. 2. If overall lifetime risk for the development of breast cancer is 20% or higher, the patient may qualify for future screening with alternating mammogram and breast MRI. [facility], , 04/13/2024 8:52 AM. Electronically signed and approved by: Isaias Thurston DO
== END | disposition home or self-care (01) ==
LOC: RADMAMWWP 13:21
PROVIDERS: ATTEND Family Medicine
DX: Z12.31 Encounter for screening mammogram for malignant neoplasm of breast (principal); Z78.0 Asymptomatic menopausal state; R92.323 Mammographic fibroglandular density, bilateral breasts
CPT/HCPCS: 77063; 77067